=== PATIENT | female | born 1980 | race Caucasian/White ===

== ENCOUNTER 2021-12-16 16:32 | Observation (INO) | payer OTHER, SELFPAY ==
[2021-12-16] VITALS (21 sets, daily range): BP systolic 112–199; BP diastolic 75–116; PULSE 77–96; RESP 14–37; TEMP 36.6–37.1; O2SAT 95–100; BMI 32.5
--- NOTE | 2021-12-16 | DI.CT.S_ITS ---
P the ROCEDURE: CT ANGIO HEAD AND NECK INDICATIONS: cva TECHNIQUE: After the administration of intravenous contrast, 1 mm thick sections acquired from the aortic arch through the [place]. Post-contrast 4.5 mm thick sections then re-acquired from the foramen magnum to the vertex. 3-dimensional ovmifwk-narexirkr-qfirzlgohy (MIP) and/or volume rendering reformats were acquired of the central intracranial vasculature and neck separately. For radiation dose reduction, the following was used: automated exposure control, adjustment of mA and/or kV according to patient size. COMPARISON: Located Within [facility], CT, CT HEAD/BRAIN WO CON, 12/16/2021, 17:21. Located Within [facility], MR, MR STROKE, 12/16/2021, 18:19. FINDINGS: Image quality: Excellent. BRAIN: CSF spaces: Basal cisterns are patent. No extra-axial fluid collections. Ventricles are normal in size and shape. Brain: No intracranial hemorrhage, mass, or mass effect. Roman-white matter interface appears grossly preserved. Small acute left basal ganglia lacunar infarct seen on recent MRI is not well visualized on CT. No abnormal intracranial enhancement. Skull and face: Calvarium and facial bones appear intact, without suspicious lesions. Orbits appear normal. Sinuses: Sinuses and mastoids are clear. HEAD CT ANGIOGRAPHY: Anterior circulation: Intracranial internal carotid arteries are normal in size and appear patent bilaterally. There is mild atherosclerotic calcification along the cavernous segments of the internal carotid arteries. The paired anterior cerebral arteries appear patent bilaterally. The anterior communicating artery also appears patent. The middle cerebral arteries appear patent bilaterally. No high-grade stenosis, occlusion, or filling defects. No cerebral aneurysms identified. Posterior circulation: Visualized portions of the vertebral arteries demonstrate normal caliber, and join to form a patent basilar artery. The posterior cerebral arteries appears patent bilaterally. No high-grade stenosis, occlusion, or filling defects. No cerebral aneurysms identified. NECK CT ANGIOGRAPHY: Carotid system: The great vessels demonstrate a conventional anatomy as they arise from the aortic arch. The origins of the common carotid arteries appear patent. The common carotid arteries demonstrate normal caliber and courses. The carotid bulbs appear widely patent. The internal carotid arteries demonstrate normal calibers and courses. Posterior circulation: The origins of the vertebral arteries both appear patent. The more superior extracranial portions of both vertebral arteries also demonstrate normal courses and calibers. They join to form a patent basilar artery. Soft tissues: Visualized neck soft tissues demonstrate no suspicious abnormalities. Bones: No suspicious bony lesions. Visualized cervical spine appears normally aligned. IMPRESSION: 1. No high-grade stenosis or occlusion of the central intracranial arteries. Focal stenosis in the left MCA seen on recent MRI is not identified, which may reflect artifact on the MRI study. 2. No high-grade stenosis or occlusion in the head and neck arteries. 3. Small lacunar infarct in the left basal ganglia seen on MRI is not well visualized on the current CT study. Any quantitative measurements of stenosis were performed using NASCET criteria. Dictated by: Alfredo Fox M.D. on 12/16/2021 at 23:35 Approved by: Alfredo Fox M.D. on 12/16/2021 at 23:40
--- NOTE | 2021-12-16 17:07 | DI.RAD.S_ITS ---
PROCEDURE: XR CHEST 1V INDICATIONS: Possible stroke TECHNIQUE: One view of the chest was acquired. COMPARISON: None. FINDINGS: Surgical changes and devices: None. Lungs and pleura: Lungs are clear. No pleural effusions or pneumothorax. Mediastinum: Mediastinal contours appear normal. Heart size is normal. Bones and chest wall: No suspicious bony lesions. Overlying soft tissues appear unremarkable. IMPRESSION: No evidence acute pulmonary process. Dictated by: Dru Riley M.D. on 12/16/2021 at 17:29 Approved by: Dru Riley M.D. on 12/16/2021 at 17:30
--- NOTE | 2021-12-16 17:08 | DI.CT.S_ITS ---
PROCEDURE: CT HEAD/BRAIN WO CON INDICATIONS: stroke symptoms TECHNIQUE: Noncontrast 4.5 mm thick angled axial sections acquired from the foramen magnum to the vertex, with coronal and sagittal reformats. For radiation dose reduction, the following was used: automated exposure control, adjustment of mA and/or kV according to patient size. COMPARISON: None. FINDINGS: Image quality: Excellent. CSF spaces: Basal cisterns are patent. No extra-axial fluid collections. Ventricles are normal in size and shape. Brain: No midline shift. No intracranial masses or hemorrhage. Roman-white matter interface is normal. Skull and face: Calvarium and visualized facial bones are intact, without suspicious lesions. Sinuses: Visualized sinuses and mastoids are clear. IMPRESSION: No evidence acute intracranial process Dictated by: Dru Riley M.D. on 12/16/2021 at 18:05 Approved by: Dru Riley M.D. on 12/16/2021 at 18:05
[2021-12-16 17:20] LABS: Add Manual Diff / Slide Review NO; Basophils Absolute Auto 0 /uL (0-100); Basophils Percent Auto 0.4 % (0-2); Eosinophils Absolute Auto 100 /uL (0-450); Eosinophils Percent Auto 1.1 % (2-4); Hematocrit 40.9 % (36-46); Hemoglobin 14.1 g/dL (12.0-16.0); Lymphocytes Absolute Auto 2500 /uL (1100-4500); Lymphocytes Percent Auto 28.2 % (25-40); Mean Corpuscular HGB Conc 34.6 % (30-36); Mean Corpuscular Hemoglobin 28.8 PG (26-34); Mean Corpuscular Volume 83.3 fL (80-100); Monocytes Absolute Auto 500 /uL (0-900); Monocytes Percent Auto 5.2 % (3-14); Neutrophils Absolute Auto 5700 /uL (1500-7000); Neutrophils Percent Auto 65.1 % (50-75); Platelet Count 406 X10^3/uL (150-400); Red Blood Cell Count 4.91 X10^6/uL (4.0-5.2); Red Cell Distribution Width 14.2 % (11.6-14.8); White Blood Cell Count 8.7 X10^3/uL (4.5-11.0)
--- NOTE | 2021-12-16 17:26 | ED.NEUROSD ---
HPI - Neuro Symptoms/Deficit <Faith Levi DO - Last Filed: 12/17/21 08:01> General Chief Complaint: Weakness Stated Complaint: Transient nuerological symptoms this morning Time Seen by Provider: 12/16/21 16:54 Source: patient Mode of arrival: Ambulatory History of Present Illness HPI Narrative: Patient is a healthy 32-year-old female with history of migraines presenting today with right-sided weakness difficulty speaking. Last known well was 9 AM. She said she was on a work call she she could get her words out. Her co-worker confirmed that she was speaking clearly and the correct words however she was speaking very slowly. She noted that her right arm and leg were numb and she did feel quite right. [place] to call [place] in she laid down and went to sleep. Her symptoms lasted for about 1 hour that completely resolved. She slightly received a phone call back later, stating she should go to the emergency department. She says she gets the visit she has had a light headache. She says typically her migraines she gets starts in her eyes she can tell that they are coming is was not migraine. Although she has had a mild headache ongoing. The symptoms have completely resolved and she is here to be checked. She has no immediate family history of stroke or coronary artery disease On Anticoagulants: No Related Data Previous Rx's Medication Instructions Recorded aspirin 81 mg tablet,delayed 81 mg PO DAILY #30 tabs 12/17/21 release atorvastatin 20 mg tablet (Lipitor) 80 mg PO BEDTIME #30 tabs 12/17/21 Allergies Allergy/AdvReac Type Severity Reaction Status Date / Time No Known Drug Allergies Allergy Verified 12/16/21 17:12 Review of Systems <Faith Levi DO - Last Filed: 12/17/21 08:01> Review of Systems Narrative: GENERAL: Denies chills, fatigue, malaise, fever, sweats, travel HEENT: Denies sinus pain, ear pain, sore throat, difficulty swallowing, neck pain RESPIRATORY: Denies dyspnea, cough, wheezing, hemoptysis, sputum. CARDIOVASCULAR: Denies chest pain, palpitations, orthopnea, edema GASTROINTESTINAL: Denies nausea, vomiting, abdominal pain, diarrhea, constipation, melena. : Denies dysuria, frequency, incontinence, hematuria, urinary retention, flank pain. MUSCULOSKELETAL: Denies weakness, joint pain, or bony pain SKIN: No rash, no erythema, no pruritus NEUROLOGIC: See HPI PSYCHIATRIC: No concerning psychosocial issues. 12 point review of systems is negative except for those stated above and HPI Hematologic/Lymphatic On Anticoagulants: No Patient History <Faith Levi DO - Last Filed: 12/17/21 08:01> Social History household members: spouse Smoking Status: Never smoker Smoking Status: Never smoker alcohol intake frequency: other Substance Use Type: does not use Exam <Faith Levi DO - Last Filed: 12/17/21 08:01> Initial Vital Signs Initial Vital Signs: Vital Signs Pulse Rate 93 H 12/16/21 17:00 Respiratory Rate 21 12/16/21 17:00 Pulse Oximetry 100 12/16/21 17:00 GENERAL: Alert pleasant 40-year-old female HEENT: Head atraumatic,EOMI, pupils reactive, face symmetric, moist mucous membranes CARDIOVASCULAR: Regular rate and rhythm without murmurs, rubs or gallops. RESPIRATORY: Breath sounds equal bilaterally, no wheezes rales or rhonchi. ABDOMEN: Soft, nontender. Normoactive bowel sounds all 4 quadrants. No guarding or rebound. EXTREMITIES: Normal range of motion, no clubbing or edema. Neurovascularly intact NEUROLOGICAL: Alert and oriented x4.Normal gait and speech. Cranial nerves II through XII grossly intact. Good [id number], good [id number], strength equal bilaterally, no dysarthria or aphasia, sensation in tact to soft touch bilaterally, no visual changes, no facial droop SKIN: Warm, dry, no laceration, no petechiae, no rashes or lesions. <Criss Xie DO - Last Filed: 12/22/21 14:39> Initial Vital Signs Initial Vital Signs: Vital Signs Pulse Rate 93 H 12/16/21 17:00 Respiratory Rate 21 12/16/21 17:00 Pulse Oximetry 100 12/16/21 17:00 Scores <Faith Levi DO - Last Filed: 12/17/21 08:01> NIH Stroke Scale Level of Conciousness: Alert, keenly responsive Ask month/age: Answers both questions correctly. Open/close eyes, close hand: Performs both tasks correctly Best gaze horizontal: Normal Visual aguilar: No visual loss Facial palsy: Normal symetrical movement Left arm drift: No drift for full 10 sec Right arm drift: No drift for full 10 sec Left leg drift: No drift for full 5 sec Right leg drift: No drift for full 5 sec Limb ataxia: Absent Sensory on face/arms/legs: Normal, no sensory loss Best language: No aphasia, normal Dysarthria: Normal Extinction or inattention: No abnormality Total NIH Stroke scale score: 0 <Criss Xie, DO - Last Filed: 12/22/21 14:39> NIH Stroke Scale Total NIH Stroke scale score: 0 Course <Faith Levi, DO - Last Filed: 12/17/21 08:01> Orders Ordered: Discontinued Medications Acetaminophen (Acetaminophen 325 Mg Tablet) 650 mg PO Q6HR PRN PRN Reason: Fever/Mild Pain (1-3) Last Admin: 12/17/21 04:21 Dose: 650 mg Documented By: YOBANI Aspirin (Aspirin 81 Mg Chew Tab) 324 mg PO NOW ONE Stop: 12/16/21 20:36 Last Admin: 12/16/21 20:51 Dose: 324 mg Documented By: STEFFI Aspirin (Aspirin Ec 81 Mg Tablet) 81 mg PO DAILY [facility] Last Admin: 12/17/21 09:56 Dose: 81 mg Documented By: Atorvastatin Calcium (Atorvastatin 20 Mg Tablet) 80 mg PO BEDTIME [facility] Heparin Sodium (Porcine) (Heparin 5,000 Unit/Ml Vial) 5,000 unit SUBCUT BID [facility] Last Admin: 12/17/21 09:56 Dose: 5,000 unit Documented By: Sodium Chloride (Normal Saline 0.9%) 1,000 mls @ 100 mls/hr IV CONT [facility] Last Admin: 12/17/21 00:15 Dose: 100 mls/hr Documented By: YOBANI Ondansetron HCl (Ondansetron 4 Mg/2 Ml Inj) 4 mg IV Q8HR PRN PRN Reason: Nausea And Vomiting Vital Signs Vital signs: Vital Signs - 8 hr 12/16/21 17:08 12/16/21 17:00 12/16/21 17:30 Temperature 98.7 F Pulse Rate 94 H 93 H Respiratory Rate 18 21 Blood Pressure 167/84 H 176/116 H Pulse Oximetry 100 100 Oxygen Delivery Method Room Air 12/16/21 17:30 12/16/21 17:34 12/16/21 17:34 Temperature Pulse Rate 93 H 92 H Respiratory Rate 14 27 H Blood Pressure 182/111 H Pulse Oximetry 99 98 Oxygen Delivery Method 12/16/21 18:00 12/16/21 18:01 12/16/21 18:01 Temperature Pulse Rate 83 87 Respiratory Rate 18 18 Blood Pressure 159/114 H Pulse Oximetry 96 97 Oxygen Delivery Method 12/16/21 19:00 12/16/21 19:01 12/16/21 19:02 Temperature Pulse Rate 96 H 95 H Respiratory Rate Blood Pressure 112/75 Pulse Oximetry 95 99 Oxygen Delivery Method 12/16/21 19:02 12/16/21 19:30 12/16/21 19:31 Temperature Pulse Rate 88 84 84 Respiratory Rate 24 17 17 Blood Pressure Pulse Oximetry 98 100 100 Oxygen Delivery Method <Criss Xie, - Last Filed: 12/22/21 14:39> Orders Ordered: Discontinued Medications Acetaminophen (Acetaminophen 325 Mg Tablet) 650 mg PO Q6HR PRN PRN Reason: Fever/Mild Pain (1-3) Last Admin: 12/17/21 04:21 Dose: 650 mg Documented By: YOBANI Aspirin (Aspirin 81 Mg Chew Tab) 324 mg PO NOW ONE Stop: 12/16/21 20:36 Last Admin: 12/16/21 20:51 Dose: 324 mg Documented By: STEFFI Aspirin (Aspirin Ec 81 Mg Tablet) 81 mg PO DAILY [facility] Last Admin: 12/17/21 09:56 Dose: 81 mg Documented By: Atorvastatin Calcium (Atorvastatin 20 Mg Tablet) 80 mg PO BEDTIME [facility] Heparin Sodium (Porcine) (Heparin 5,000 Unit/Ml Vial) 5,000 unit SUBCUT BID [facility] Last Admin: 12/17/21 09:56 Dose: 5,000 unit Documented By: Sodium Chloride (Normal Saline 0.9%) 1,000 mls @ 100 mls/hr IV CONT [facility] Last Admin: 12/17/21 00:15 Dose: 100 mls/hr Documented By: YOBANI Ondansetron HCl (Ondansetron 4 Mg/2 Ml Inj) 4 mg IV Q8HR PRN PRN Reason: Nausea And Vomiting Consultations Consultation #1: Telestroke neurology, [facility]. Dr. Escamilla. Going to review images. Called back after reviewing MRI: Recommends aspirin 324 mg daily because patient's over 70 kg hold dual platelet therapy for this time but recontact if CT angiogram of head and neck shows severe stenosis or other concerning changes. They are happy to have be reconsulted. He does recommend follow-up with Neurology recommends a lumbar puncture either as an outpatient or urgently after CT angiogram to evaluate from an MS perspective in for inflammatory changes. He states this does not have to be done inpatient but could occur on an outpatient a depending on timing. He also notes that he will review this with their neuro radiologist and if there is any clarifications or changes will recontact. Consultation #2: Dr. Cash, discussed recommendations from neurology. He will come and see and evaluate the patient. He may also touch base with Neurology as patient has unexpected MRI findings. Vital Signs Vital signs: Vital Signs - 8 hr 12/16/21 17:08 12/16/21 17:00 12/16/21 17:30 Temperature 98.7 F Pulse Rate 94 H 93 H Respiratory Rate 18 21 Blood Pressure 167/84 H 176/116 H Pulse Oximetry 100 100 Oxygen Delivery Method Room Air 12/16/21 17:30 12/16/21 17:34 12/16/21 17:34 Temperature Pulse Rate 93 H 92 H Respiratory Rate 14 27 H Blood Pressure 182/111 H Pulse Oximetry 99 98 Oxygen Delivery Method 12/16/21 18:00 12/16/21 18:01 12/16/21 18:01 Temperature Pulse Rate 83 87 Respiratory Rate 18 18 Blood Pressure 159/114 H Pulse Oximetry 96 97 Oxygen Delivery Method 12/16/21 19:00 12/16/21 19:01 12/16/21 19:02 Temperature Pulse Rate 96 H 95 H Respiratory Rate Blood Pressure 112/75 Pulse Oximetry 95 99 Oxygen Delivery Method 12/16/21 19:02 12/16/21 19:30 12/16/21 19:31 Temperature Pulse Rate 88 84 84 Respiratory Rate 24 17 17 Blood Pressure Pulse Oximetry 98 100 100 Oxygen Delivery Method MDM - Neuro Symptoms/Deficit <Faith Levi, - Last Filed: 12/17/21 08:01> Lab Data Result diagrams: 12/16/21 17:12 12/16/21 17:12 Labs: Lab Results 12/16/21 12/16/21 12/16/21 Range/Units 17:12 17:12 17:12 WBC 8.7 (4.5-11.0) X10^3/uL RBC 4.91 (4.0-5.2) X10^6/uL Hgb 14.1 (12.0-16.0) g/dL Hct 40.9 (36-46) % MCV 83.3 (80-100) fL MCH 28.8 (26-34) PG MCHC 34.6 (30-36) % RDW 14.2 (11.6-14.8) % Plt Count 406 H (150-400) X10^3/uL Neut % (Auto) 65.1 (50-75) % Lymph % (Auto) 28.2 (25-40) % [place] % (Auto) 5.2 (3-14) % Eos % (Auto) 1.1 L (2-4) % Baso % (Auto) 0.4 (0-2) % Neut # (Auto) 5700 (3776-9169) /uL Lymph # (Auto) 2500 (9547-3995) /uL [place] # (Auto) 500 (0-900) /uL Eos # (Auto) 100 (0-450) /uL Baso # (Auto) 0 (0-100) /uL PT 11.6 (10.1-12.7) SECONDS INR 1.0 (0.9-1.3) APTT 37 H (26-36) SECONDS Sodium 140 (137-145) mmol/L Potassium 3.6 (3.4-5.1) mmol/L Chloride 104 (98-107) mmol/L Carbon Dioxide 23 (22-32) mmol/L BUN 14 (7-17) mg/dL Creatinine 0.76 (0.52-1.04) mg/dL Estimated GFR > 60 (>60) mL/min BUN/Creatinine Ratio 18.4 (6-22) Glucose 121 H (70-100) mg/dL Calcium 9.5 (8.4-10.2) mg/dL Magnesium 2.2 (1.6-2.3) mg/dL Total Bilirubin 0.4 (0.2-1.3) mg/dL AST 23 (14-36) IU/L ALT 31 (<35) IU/L Alkaline Phosphatase 61 (38-126) U/L Total Creatine Kinase 50 (30-135) U/L CK-MB (CK-2) TNP CK-MB (CK-2) Rel Index TNP Troponin I < 0.012 (0.01-0.034) ng/mL Total Protein 8.1 (6.3-8.2) g/dL Albumin 4.5 (3.5-5.0) g/dL Globulin 3.6 (1.7-4.1) g/dL Albumin/Globulin Ratio 1.3 (1.0-2.8) Serum , Qual (Negative) SARS-CoV-2 (PCR) (Negative) 12/16/21 12/16/21 Range/Units 17:12 21:40 WBC (4.5-11.0) X10^3/uL RBC (4.0-5.2) X10^6/uL Hgb (12.0-16.0) g/dL Hct (36-46) % MCV (80-100) fL MCH (26-34) PG MCHC (30-36) % RDW (11.6-14.8) % Plt Count (150-400) X10^3/uL Neut % (Auto) (50-75) % Lymph % (Auto) (25-40) % [place] % (Auto) (3-14) % Eos % (Auto) (2-4) % Baso % (Auto) (0-2) % Neut # (Auto) (9458-4783) /uL Lymph # (Auto) (9161-5660) /uL [place] # (Auto) (0-900) /uL Eos # (Auto) (0-450) /uL Baso # (Auto) (0-100) /uL PT (10.1-12.7) SECONDS INR (0.9-1.3) APTT (26-36) SECONDS Sodium (137-145) mmol/L Potassium (3.4-5.1) mmol/L Chloride (98-107) mmol/L Carbon Dioxide (22-32) mmol/L BUN (7-17) mg/dL Creatinine (0.52-1.04) mg/dL Estimated GFR (>60) mL/min BUN/Creatinine Ratio (6-22) Glucose (70-100) mg/dL Calcium (8.4-10.2) mg/dL Magnesium (1.6-2.3) mg/dL Total Bilirubin (0.2-1.3) mg/dL AST (14-36) IU/L ALT (<35) IU/L Alkaline Phosphatase (38-126) U/L Total Creatine Kinase (30-135) U/L CK-MB (CK-2) CK-MB (CK-2) Rel Index Troponin I (0.01-0.034) ng/mL Total Protein (6.3-8.2) g/dL Albumin (3.5-5.0) g/dL Globulin (1.7-4.1) g/dL Albumin/Globulin Ratio (1.0-2.8) Serum , Qual Negative (Negative) SARS-CoV-2 (PCR) Negative (Negative) Imaging Data CT scan - head: Radiologist's Impression: [address] [place] [id number] Scan Report Signed Patient: Jenelle Valladares MR#: [id number] : 1980 Acct:[id number] Age/Sex: 40 / F Date of Service: 12/16/21 Loc: ED Accession Number: [id number] ?? Procedure: CT head/brain wo con Ordering Provider: Faith Levi D.O. PROCEDURE:? CT HEAD/BRAIN WO CON ? INDICATIONS:? stroke symptoms ? TECHNIQUE:? Noncontrast 4.5 mm thick angled axial sections acquired from the foramen magnum to the vertex, with coronal and sagittal reformats.? For radiation dose reduction, the following was used:? automated exposure control, adjustment of mA and/or kV according to patient size.? ? COMPARISON:? None. ? FINDINGS:? Image quality:? Excellent.? ? CSF spaces:? Basal cisterns are patent.? No extra-axial fluid collections.? Ventricles are normal in size and shape.? ? Brain:? No midline shift.? No intracranial masses or hemorrhage.? Roman-white matter interface is normal.? ? Skull and face:? Calvarium and visualized facial bones are intact, without suspicious lesions.? ? Sinuses:? Visualized sinuses and mastoids are clear.? ? IMPRESSION:? No evidence acute intracranial process ? ? Dictated by: Dru Riley M.D. on 12/16/2021 at 18:05 ? ? Chest x-ray: Radiologist's Impression: XRay Report Signed Patient: Jenelle Valladares MR#: [id number] : 1980 Acct:[id number] Age/Sex: 40 / F Date of Service: 12/16/21 Loc: ED Accession Number: [id number] ?? Procedure: XR chest 1V Ordering Provider: Faith Levi D.O. PROCEDURE:? XR CHEST 1V ? INDICATIONS:? Possible stroke ? TECHNIQUE:? One view of the chest was acquired.? ? COMPARISON:? None. ? FINDINGS:? ? Surgical changes and devices:? None.? ? Lungs and pleura:? Lungs are clear.? No pleural effusions or pneumothorax.? ? Mediastinum:? Mediastinal contours appear normal.? Heart size is normal.? ? Bones and chest wall:? No suspicious bony lesions.? Overlying soft tissues appear unremarkable.? ? IMPRESSION:? No evidence acute pulmonary process. ? ? ? Dictated by: Dru Riley M.D. on 12/16/2021 at 17:29 ? ? ECG Data Interpretation: Normal sinus rhythm rate 85 MI interval 164 QRS [address] MDM Narrative Medical decision making narrative: Patient's symptoms started at 9:00 a.m. lasted for about 1 hour they have been completely resolved for a while. She really has no risk factors. Possible atypical migraine vs TIA. NIHSS 0. Not a tpa candidate. Head CT is negative blood work is overall reassuring. MRI is taken. Patient is signed out to Dr. Xie for further management 40-year-old female signed out to myself with stroke-like symptoms that onset about 845-9 a.m. lasted for approximately an hour longer and have resolved with an NIH of 0 now. Patient seen independently evaluated by myself she still has some mild headache. No residual symptoms. She denies any medications daily, no oral contraceptives, no medical issues. She is had a remote knee surgery in high school, no allergies, no tobacco, occasional alcohol no illicit or IV drugs. Grandmother had a stroke, mom has multiple siblings with cardiac issues at young ages she is 1 brother who is healthy. She has not had similar symptoms in the past has not had any atrial fibrillation here in the department. Labs overall are reassuring head CT was negative chest x-ray showed no acute change stroke MRI shows an acute or subacute lacunar infarct involving the left basal ganglia extending into the periventricular deep white matter there are some scattered deep white T2 signal at abnormalities likely represent scattered, greater than expected foci of small-vessel ischemic change can not exclude a superimposed demyelinating disorder such as MS. She has focal M1 stenosis of the left MCA and otherwise unremarkable neck angiogram. Discussed with tele stroke <Criss Xie, DO - Last Filed: 12/22/21 14:39> Lab Data Labs: Lab Results 12/16/21 12/16/21 12/16/21 Range/Units 17:12 17:12 17:12 WBC 8.7 (4.5-11.0) X10^3/uL RBC 4.91 (4.0-5.2) X10^6/uL Hgb 14.1 (12.0-16.0) g/dL Hct 40.9 (36-46) % MCV 83.3 (80-100) fL MCH 28.8 (26-34) PG MCHC 34.6 (30-36) % RDW 14.2 (11.6-14.8) % Plt Count 406 H (150-400) X10^3/uL Neut % (Auto) 65.1 (50-75) % Lymph % (Auto) 28.2 (25-40) % [place] % (Auto) 5.2 (3-14) % Eos % (Auto) 1.1 L (2-4) % Baso % (Auto) 0.4 (0-2) % Neut # (Auto) 5700 (3675-1830) /uL Lymph # (Auto) 2500 (1033-8669) /uL [place] # (Auto) 500 (0-900) /uL Eos # (Auto) 100 (0-450) /uL Baso # (Auto) 0 (0-100) /uL PT 11.6 (10.1-12.7) SECONDS INR 1.0 (0.9-1.3) APTT 37 H (26-36) SECONDS Sodium 140 (137-145) mmol/L Potassium 3.6 (3.4-5.1) mmol/L Chloride 104 (98-107) mmol/L Carbon Dioxide 23 (22-32) mmol/L BUN 14 (7-17) mg/dL Creatinine 0.76 (0.52-1.04) mg/dL Estimated GFR > 60 (>60) mL/min BUN/Creatinine Ratio 18.4 (6-22) Glucose 121 H (70-100) mg/dL Calcium 9.5 (8.4-10.2) mg/dL Magnesium 2.2 (1.6-2.3) mg/dL Total Bilirubin 0.4 (0.2-1.3) mg/dL AST 23 (14-36) IU/L ALT 31 (<35) IU/L Alkaline Phosphatase 61 (38-126) U/L Total Creatine Kinase 50 (30-135) U/L CK-MB (CK-2) TNP CK-MB (CK-2) Rel Index TNP Troponin I < 0.012 (0.01-0.034) ng/mL Total Protein 8.1 (6.3-8.2) g/dL Albumin 4.5 (3.5-5.0) g/dL Globulin 3.6 (1.7-4.1) g/dL Albumin/Globulin Ratio 1.3 (1.0-2.8) Serum , Qual (Negative) SARS-CoV-2 (PCR) (Negative) 12/16/21 12/16/21 Range/Units 17:12 21:40 WBC (4.5-11.0) X10^3/uL RBC (4.0-5.2) X10^6/uL Hgb (12.0-16.0) g/dL Hct (36-46) % MCV (80-100) fL MCH (26-34) PG MCHC (30-36) % RDW (11.6-14.8) % Plt Count (150-400) X10^3/uL Neut % (Auto) (50-75) % Lymph % (Auto) (25-40) % [place] % (Auto) (3-14) % Eos % (Auto) (2-4) % Baso % (Auto) (0-2) % Neut # (Auto) (3724-9469) /uL Lymph # (Auto) (2286-1233) /uL [place] # (Auto) (0-900) /uL Eos # (Auto) (0-450) /uL Baso # (Auto) (0-100) /uL PT (10.1-12.7) SECONDS INR (0.9-1.3) APTT (26-36) SECONDS Sodium (137-145) mmol/L Potassium (3.4-5.1) mmol/L Chloride (98-107) mmol/L Carbon Dioxide (22-32) mmol/L BUN (7-17) mg/dL Creatinine (0.52-1.04) mg/dL Estimated GFR (>60) mL/min BUN/Creatinine Ratio (6-22) Glucose (70-100) mg/dL Calcium (8.4-10.2) mg/dL Magnesium (1.6-2.3) mg/dL Total Bilirubin (0.2-1.3) mg/dL AST (14-36) IU/L ALT (<35) IU/L Alkaline Phosphatase (38-126) U/L Total Creatine Kinase (30-135) U/L CK-MB (CK-2) CK-MB (CK-2) Rel Index Troponin I (0.01-0.034) ng/mL Total Protein (6.3-8.2) g/dL Albumin (3.5-5.0) g/dL Globulin (1.7-4.1) g/dL Albumin/Globulin Ratio (1.0-2.8) Serum , Qual Negative (Negative) SARS-CoV-2 (PCR) Negative (Negative) MDM Narrative Medical decision making narrative: Patient's symptoms started at 9:00 a.m. lasted for about 1 hour they have been completely resolved for a while. She really has no risk factors. Possible atypical migraine vs TIA. NIHSS 0. Not a tpa candidate. Head CT is negative blood work is overall reassuring. MRI is taken. Patient is signed out to Dr. Xie for further management 40-year-old female signed out to myself with stroke-like symptoms that onset about 845-9 a.m. lasted for approximately an hour longer and have resolved with an NIH of 0 now. Patient seen independently evaluated by myself she still has some mild headache. No residual symptoms. She denies any medications daily, no oral contraceptives, no medical issues. She is had a remote knee surgery in high school, no allergies, no tobacco, occasional alcohol no illicit or IV drugs. Grandmother had a stroke, mom has multiple siblings with cardiac issues at young ages she is 1 brother who is healthy. She has not had similar symptoms in the past has not had any atrial fibrillation here in the department. Labs overall are reassuring head CT was negative chest x-ray showed no acute change stroke MRI shows an acute or subacute lacunar infarct involving the left basal ganglia extending into the periventricular deep white matter there are some scattered deep white T2 signal at abnormalities likely represent scattered, greater than expected foci of small-vessel ischemic change can not exclude a superimposed demyelinating disorder such as MS. She has focal M1 stenosis of the left MCA and otherwise unremarkable neck angiogram. Discussed with tele stroke, recommended full dose asa, no dual antiplatelet at this time. Stroke workup. Not code IR at this time. Also recommends further workup for MS, ect. LP can be done on non-emergent basis and requests CTA head/neck prior to LP. Reviewed with Dr. Cash, hospitalist who accepts for admission. Stroke Core Measures Exclusion Criteria TPA in CVA: Symptom Onset >3 or 4.5 Hours Discharge Plan Departure Patient Disposition: Admitted As Inpatient Clinical Impression: Acute CVA (cerebrovascular accident) Admit Date/Time: 12/16/21 22:03 Admit Provider: Graham Cash
[2021-12-16 17:29] LABS: Prothrombin Time 11.6 SECONDS (10.1-12.7)
[2021-12-16 17:31] LABS: PTT Partial Thromboplastin Tim 37 SECONDS (26-36)
--- NOTE | 2021-12-16 17:36 | DI.MRI.S_ITS ---
PROCEDURE: MR STROKE Pre- and post-contrast brain MRI, non-contrast brain MR angiogram, pre- and postcontrast neck MR angiogram INDICATIONS: right seided numbness now resolved TECHNIQUE: Brain: Noncontrast axial T1 spin echo, axial T2 fast spin echo, sagittal and axial FLAIR, coronal T2 fast spin echo, axial gradient echo, axial diffusion and ADC through the brain. After the administration of contrast, axial 3D VIBE of the cranial vasculature and brain. Brain MRA: Non-contrast 3-D time of flight MR angiogram, with multiple brcjifo-dnjbvodjf-decfywkatv (MIP) reformats performed. Neck MRA: Axial and sagittal TruFISP through the neck. Coronal dynamic MR angiogram during administration of contrast in the arterial and venous phases, with 3-dimenstional dwkxiqd-erwhopyge-qdwudcinvu (MIP) reformats constructed from subtraction images. COMPARISON: None. FINDINGS: Image quality: Excellent. BRAIN: CSF spaces: Ventricles are normal in size and shape. Basal cisterns are patent. No extra-axial fluid collections. Brain: No intracranial bleeds or mass effects. Roman-white matter interface is normal. There is a tiny acute or subacute lacunar infarct involving the right basal ganglia extending into the right periventricular deep white matter. There is restricted water diffusion present on the diffusion-weighted sequence. There also scattered small areas of increased T2 signal present in multiple deep white matter structures, consistent with mild, but greater than expected for patient age small vessel ischemic change. There are small areas of signal abnormality present in the corpus callosum, which most likely represent sequelae of small vessel ischemic change. However, cannot exclude a demyelinating disorder. Brainstem appears normal. Normal intravascular flow voids are present. No abnormal intracranial enhancement. Skull and face: Calvarial marrow signal is normal. Orbits appear normal. Sinuses: Sinuses and mastoids are clear. BRAIN MR ANGIOGRAM: Anterior circulation: Intracranial internal carotid arteries are normal in size and enhancement. The flow within the paired anterior cerebral arteries is normal and symmetric mild left M1 segment middle cerebral artery stenosis. The anterior communicating artery is seen. No stenoses, occlusions, or aneurysms. Posterior circulation: The visualized portions of the vertebral arteries demonstrate normal caliber, and join to form a normal appearing basilar artery. The flow within the posterior cerebral arteries is normal and symmetric. No stenoses, occlusions, or aneurysms. NECK MR ANGIOGRAM: Carotids: Great vessels demonstrate a conventional anatomy as they arise from the aortic arch. The origins of the common carotid arteries appear patent. The calibers and courses of both common carotid arteries are normal. The bifurcation regions appear normal bilaterally. The internal carotid arteries demonstrate normal course and caliber. Posterior circulation: The origins of the vertebral arteries appear patent. More superior portions of both vertebral arteries demonstrate normal course and caliber, and join to form a normal appearing basilar artery. Miscellaneous: Subclavian arteries appear patent. Pre-contrast images through the neck show no soft tissue abnormalities. IMPRESSION: BRAIN MRI: 1. Acute or subacute lacunar infarct involving the left basal ganglia extending into periventricular deep white matter. 2. Scattered deep white matter T2 signal abnormalities most likely represent scattered, greater than expected foci of small vessel ischemic change. However, T2 signal abnormalities also involve the corpus callosum. Cannot exclude a superimposed demyelinating disorder such as multiple sclerosis. BRAIN MR ANGIOGRAM: There is a focal M1 stenosis of the left middle cerebral artery. NECK MR ANGIOGRAM: Unremarkable. Widely patent carotids. Dictated by: Dru Riley M.D. on 12/16/2021 at 19:38 Approved by: Dru Riley M.D. on 12/16/2021 at 19:46
[2021-12-16 17:39] LABS: Alanine Aminotransferase 31 IU/L (<35); Albumin 4.5 g/dL (3.5-5.0); Albumin Globulin Ratio 1.3 (1.0-2.8); Alkaline Phosphatase 61 U/L (38-126); Aspartate Aminotransferase 23 IU/L (14-36); BUN Creatinine Ratio 18.4 (6-22); Bilirubin Total 0.4 mg/dL (0.2-1.3); Blood Urea Nitrogen 14 mg/dL (7-17); Calcium 9.5 mg/dL (8.4-10.2); Carbon Dioxide 23 mmol/L (22-32); Chloride 104 mmol/L (98-107); Creatine Kinase 50 U/L (30-135); Estimated Glomerular Filt Rate > 60 mL/min (>60); Globulin 3.6 g/dL (1.7-4.1); Glucose 121 mg/dL (70-100); Magnesium 2.2 mg/dL (1.6-2.3); Potassium 3.6 mmol/L (3.4-5.1); Sodium 140 mmol/L (137-145); Total Protein 8.1 g/dL (6.3-8.2)
[2021-12-16 17:51] LABS: HEMOLYSIS < 15 (0-50); Troponin I < 0.012 ng/mL (0.01-0.034)
[2021-12-16] MEDS: ASPIRIN 81 MG CHEW TAB 324 MG PO (20:51)
[2021-12-16 21:45] LABS: Pregnancy Test Serum,Qual Negative (Negative)
[2021-12-16 22:19] LABS: COVID19 -Nasal RAPID Negative (Negative)
--- NOTE | 2021-12-16 22:46 | P.HP_ITS ---
History of Present Illness History of Present Illness Date Patient Seen: 12/16/21 Time Patient Seen: 22:30 Chief complaint: Transient nuerological symptoms this morning Narrative: Ms. Valladares is a 32W with history of migraines who presents with right sided weakness and difficulty speaking. She said she felt fine yesterday. Today she thinks she woke up feeling off, and then over the course of the morning noted she was unable to speak words correctly. She noted difficulty controlling her right sided and inability to walk straight. She had right sided numbness. She had a headache. Her symptoms resolved after an hour. She called a nursing hotline which recommended presenting to the ED. She has no history of miscarriages. In the ED workup was done, vitals notable for tachycardia, and elevated blood pressure. No fever. Labs notable for WBC 8.7, hgb 14.1. Creatinine 0.76. INR 1.0. Trop negative. CT head negative for acute process. Chest xray negative for acute process. MRI showed acute left basal ganglia infract, scattered T2 signal abnormalities in the deep white matter and focal M1 stenosis of the MCA. She was ordered for aspirin. Teleneurology was consulted and so no indication for code IR and to admit and treat medically. She was admitted for further treatment. Family history: mother with MS Social history: no smoking, other substance abuse Patient History Family & Social History Safety & Behavioral: Feels Safe in Current Yes Environment Been Physically Hurt or No Threatened By a Person Tobacco & Substance use: Smoking Status Never smoker alcohol intake frequency other Substance Use Type does not use Meds Home Medications and Allergies Home Medications Medication Instructions Recorded Confirmed Type No Known Home Medications 12/16/21 12/16/21 History Allergies Allergy/AdvReac Type Severity Reaction Status Date / Time No Known Drug Allergies Allergy Verified 12/16/21 17:12 Review of Systems Review of Systems Narrative: 14 systems reviewed and negative aside from what is noted in HPI Exam Vital Signs (past 8 hours): - 12/16/21 17:08 12/16/21 17:00 12/16/21 17:30 Temperature 98.7 F Pulse Rate 94 H 93 H Respiratory Rate 18 21 Blood Pressure 167/84 H 176/116 H Pulse Oximetry 100 100 Oxygen Delivery Method Room Air 12/16/21 17:30 12/16/21 17:34 12/16/21 17:34 Temperature Pulse Rate 93 H 92 H Respiratory Rate 14 27 H Blood Pressure 182/111 H Pulse Oximetry 99 98 Oxygen Delivery Method 12/16/21 18:00 12/16/21 18:01 12/16/21 18:01 Temperature Pulse Rate 83 87 Respiratory Rate 18 18 Blood Pressure 159/114 H Pulse Oximetry 96 97 Oxygen Delivery Method 12/16/21 19:00 12/16/21 19:01 12/16/21 19:02 Temperature Pulse Rate 96 H 95 H Respiratory Rate Blood Pressure 112/75 Pulse Oximetry 95 99 Oxygen Delivery Method 12/16/21 19:02 12/16/21 19:30 12/16/21 19:31 Temperature Pulse Rate 88 84 84 Respiratory Rate 24 17 17 Blood Pressure Pulse Oximetry 98 100 100 Oxygen Delivery Method 12/16/21 19:55 12/16/21 19:55 12/16/21 20:00 Temperature Pulse Rate 85 Respiratory Rate 20 Blood Pressure 188/102 H 185/104 H Pulse Oximetry 99 Oxygen Delivery Method 12/16/21 20:00 12/16/21 20:30 12/16/21 20:30 Temperature Pulse Rate 84 79 Respiratory Rate 17 14 Blood Pressure 172/90 H Pulse Oximetry 99 99 Oxygen Delivery Method 12/16/21 21:00 12/16/21 21:00 12/16/21 21:30 Temperature Pulse Rate 85 Respiratory Rate 33 H Blood Pressure 186/110 H 199/92 H Pulse Oximetry 99 Oxygen Delivery Method 12/16/21 21:30 12/16/21 22:00 12/16/21 22:01 Temperature Pulse Rate 85 83 83 Respiratory Rate 24 34 H Blood Pressure Pulse Oximetry 100 98 98 Oxygen Delivery Method 12/16/21 22:01 Temperature Pulse Rate Respiratory Rate Blood Pressure 190/100 H Pulse Oximetry Oxygen Delivery Method Oxygen Delivery Method Room Air Narrative Exam Narrative: GEN: no acute distress HEENT: moist mucous membranes, PERRL Neck: trachea midline, no jvd CV: regular rate and rhythm, no murmurs PULM: clear bilaterally ABD: soft, nontender, nondistended, no organomegaly EXT: warm and well perfused with no edema NEURO: awake, alert oriented, CN 2-12 intact, sensation intact, 5/5 strength upper and lower extremities no cerebellar signs Objective Labs Result Diagrams: 12/16/21 17:12 12/16/21 17:12 Labs: Laboratory Results - last 24 hr 09/15/22 09/15/22 09/15/22 17:12 17:12 17:12 WBC 8.7 RBC 4.91 Hgb 14.1 Hct 40.9 MCV 83.3 MCH 28.8 MCHC 34.6 RDW 14.2 Plt Count 406 H Neut % (Auto) 65.1 Lymph % (Auto) 28.2 [place] % (Auto) 5.2 Eos % (Auto) 1.1 L Baso % (Auto) 0.4 Neut # (Auto) 5700 Lymph # (Auto) 2500 [place] # (Auto) 500 Eos # (Auto) 100 Baso # (Auto) 0 PT 11.6 INR 1.0 APTT 37 H Sodium 140 Potassium 3.6 Chloride 104 Carbon Dioxide 23 BUN 14 Creatinine 0.76 Estimated GFR > 60 BUN/Creatinine Ratio 18.4 Glucose 121 H Calcium 9.5 Magnesium 2.2 Total Bilirubin 0.4 AST 23 ALT 31 Alkaline Phosphatase 61 Total Creatine Kinase 50 CK-MB (CK-2) TNP CK-MB (CK-2) Rel Index TNP Troponin I < 0.012 Total Protein 8.1 Albumin 4.5 Globulin 3.6 Albumin/Globulin Ratio 1.3 Serum , Qual SARS-CoV-2 (PCR) 12/16/21 12/16/21 17:12 21:40 WBC RBC Hgb Hct MCV MCH MCHC RDW Plt Count Neut % (Auto) Lymph % (Auto) [place] % (Auto) Eos % (Auto) Baso % (Auto) Neut # (Auto) Lymph # (Auto) [place] # (Auto) Eos # (Auto) Baso # (Auto) PT INR APTT Sodium Potassium Chloride Carbon Dioxide BUN Creatinine Estimated GFR BUN/Creatinine Ratio Glucose Calcium Magnesium Total Bilirubin AST ALT Alkaline Phosphatase Total Creatine Kinase CK-MB (CK-2) CK-MB (CK-2) Rel Index Troponin I Total Protein Albumin Globulin Albumin/Globulin Ratio Serum , Qual Negative SARS-CoV-2 (PCR) Negative Assessment & Plan Assessment & Plan narrative: Ms. Valladares is a 40W with no significant PMH who presents dysarthria, right sided neurologic symptoms found to have acute stroke. 1. Acute CVA -MRI confirms left basal ganglia stroke, possible etiology is mca m1 stenosis -noncon brain mra concerning for m1 stenosis -ordered CTA to confirm stenosis -did get aspirin in ED -continue aspirin and statin -check lipids, a1c -blood pressure elevated on admission, allow permissive hypertension -may need outpatient BP medications 2. Scattered T2 white matter abnormality -unclear etiology, may be secondary to small vessel ischemic change or MS -on discharge refer to neurology for follow and possible non urgent LP 3. History of migraines -avoid ergot, triptans CODE: Full Proxy: Ligia Valladares I have utilized all available resources to reconcile the patient's home medications Time Spent With Patient Critical Care time: I spent a total of [] minutes of critical care time on this patient's care today; this time is exclusive of procedural time.
--- NOTE | 2021-12-16 23:43 | DI.ECHO.S_ITS ---
[facility]---------+ [facility] +---------+ : : [address] [place] : : : : [id number] : : : : Phone: [phone]+ Echocardiogram Report + + :Name: SYLVIA MACDONALD Study Date: 12/17/2021 Height: 69 in : :[facility] ReadingLocation: Weight: 225 lb : : Gender: Female BSA: 2.2 m2 : :: 1980 Age: 41 yrs BP: 153/112 mmHg: :Reason For Study: CVA : :Ordering Physician: : :DAI FAULKNER Performed By: Josiah Gil : :Referring: DAI FAULKNER : + + Interpretation Summary The left ventricle is normal in size. There is no LV thrombus. The ejection fraction is estimated to be 60-65%. The right ventricle is normal in size and function. No significant valvular pathology seen. Injection of contrast documented an interatrial shunt with valsalva. Likely patent PFO. Consider SHARIF for further evaluation of interatrial septum. The IVC is of normal diameter and collapses greater than 50% with a sniff. This suggests a low right atrial pressure of 3 mm Hg. The patient was in normal sinus rhythm during the exam. BP: 153/112 mmHg Procedure: A two-dimensional transthoracic echocardiogram with color flow and Doppler was performed. The study quality was technically adequate. There is no prior echocardiogram noted for this patient. The patient was in normal sinus rhythm during the exam. Left Ventricle: The left ventricle is normal in size. Proximal septal thickening is noted. There is no echo evidence for significant left ventricular outflow tract obstruction. There is no thrombus. Left ventricular systolic function is normal. The ejection fraction is estimated to be 60-65%. There are no focal wall motion abnormalities. MV E/A: 1.1 Med Peak E' Jayden: 6.9 cm/sec E/E' med: 10.2. Right Ventricle: The right ventricle is normal in size and function. Atria: Both atria are normal in size. Injection of contrast documented an interatrial shunt with valsalva. Mitral Valve: The mitral valve is normal in structure and function. There is no mitral regurgitation noted. Aortic Valve: The aortic valve is normal in structure and function. The aortic valve is trileaflet. There is no aortic valve stenosis. No aortic regurgitation is present. Tricuspid Valve: The tricuspid valve is normal in structure and function. No tricuspid regurgitation. Pulmonary artery pressures cannot be estimated because of the lack of a measurable TR jet velocity. Pulmonic Valve: The pulmonic valve is not well seen, but is grossly normal. There is no pulmonic valvular regurgitation. Great Vessels: The aortic root is normal size. The dimensions of the ascending aorta are normal. The IVC is of normal diameter and collapses greater than 50% with a sniff. This suggests a low right atrial pressure of 3 mm Hg. Pericardium/ Pleura There is no pericardial effusion. There is an anterior echo-free space consistent with a fat pad. There is no pleural effusion. MMode/2D Measurements & Calculations LVIDd: 4.9 cm LVOT diam: 2.4 cm LVIDs: 3.0 cm Ao root diam: 3.4 cm FS: 39.0 % asc Aorta Diam: 3.6 cm IVSd: 0.96 cm LVPWd: 1.00 cm LV dutton. diameter/BSA (cm/m^2): 2.2 LV sys. diameter/BSA (cm/m^2): 1.4 LA A2 area: 17.9 cm2 RA long axis: 5.2 cm LA A4 area: 13.6 cm2 RA area: 14.0 cm2 LA length (vol): 4.6 cm RA vol: 32.1 ml LA vol: 45.4 ml RA : 14.8 ml/m2 LA vol index: 20.9 ml/m2 TAPSE: 2.5 cm Doppler Measurements & Calculations Ao V2 max: 94.4 cm/sec LVOT Max Jayden: 92.7 cm/sec Ao V2 mean: 72.9 cm/sec LV V1 max P.4 mmHg Ao max P.6 mmHg LV V1 VTI: 17.8 cm Ao mean P.3 mmHg MAKENZIE(I,D): 4.4 cm2 Ao V2 VTI: 18.9 cm MAKENZIE(V,D): 4.6 cm2 sev ratio: 0.94 MAKENZIE indexed to BSA (cm^2/m^2): 2.0 MV E max jayden: 70.2 cm/sec SV(LVOT): 83.6 ml MV A max jayden: 65.9 cm/sec MV E/A: 1.1 Med Peak E' Jayden: 6.9 cm/sec E/E' med: 10.2 Lat Peak E' Jayden: 7.4 cm/sec E/E' lat: 9.4 E/e' average: 9.8 MV dec time: 0.23 sec Reading Physician:10:32 AM
--- NOTE | 2021-12-16 23:45 | PC.NURSE ---
Patient admitted to 218 from ED for stroke symptoms. Patient A&Ox4 on admission, BP 160's/110's, and c/o minimal headache. NIH on admission is 0. Patient able to pass swallow study and is now on general diet.
[2021-12-17] MEDS: SODIUM CHLORIDE 0.9% 1,000 ML 100 ML IV (00:15)
[2021-12-17 03:43] VITALS: BP 153/112; PULSE 82; RESP 14; TEMP 36.9; O2SAT 99
[2021-12-17] MEDS: ACETAMINOPHEN 325 MG TABLET 650 MG PO (04:21)
[2021-12-17 05:15] LABS: Cholesterol 254 mg/dL (140-199); HDL Cholesterol 35 mg/dL (40-60); LDL Cholesterol Calculated 197 mg/dL (<100); Triglycerides 111 mg/dL (35-150)
[2021-12-17 05:31] LABS: Hemoglobin A1C% w Est Avg Glu 5.1 % (4.0-6.0)
[2021-12-17 07:52] VITALS: BP 184/111; PULSE 85; RESP 16; TEMP 36.6; O2SAT 97
--- NOTE | 2021-12-17 09:27 | PC.NURSE ---
Day shift Graham Torres notified of Pt concerns of high blood pressure. Dr instructed to have Pt f/u with Primary care provider for treatment of HTN. also stated it was too soon to start any HTN meds after cardiac incident.
--- NOTE | 2021-12-17 09:40 | OT.IPNOTE ---
Attempted to see pt for OT eval. Pt states feeling back to normal and refusing OT eval. Therefore discharge pt from OT services.
[2021-12-17] MEDS: ASPIRIN EC 81 MG TABLET PO (09:56)
[2021-12-17] MEDS: HEPARIN 5,000 UNIT/ML VIAL 5000 UNIT SUBCUT (09:56)
--- NOTE | 2021-12-17 11:04 | CM.DANOTE ---
Initial DCP Assessment Note Pt is a 41 yo female, resident of [place], presents with sx of stroke and CVA confirmed via MRI Patient's symptoms lasted for about 1 hour than completely resolved; patient refused therapies this morning stating she doesn't need them. Patient eager to return home w/family PCP: Not listed Payer: Randolph Toure No barriers identified at this time to patient's safe discharge home w/family to assist; close outpatient f/u recommended. 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 No History Provided By Patient,Medical Record Prior Living Arrangements House Household Members spouse Type of transporation used prior to Drives own vehicle admit Independent with ADL's Yes Is patient alert and oriented? Yes Barriers to Discharge No Discharge Plan Home Transportation Arrangement Spouse Referrals Initiated None needed
--- NOTE | 2021-12-17 11:05 | ST.IPSCREEN ---
The pt was seated upright in bed looking at her phone with the lights in the room off when SECRETARIAL TEACHER arrived. She reported all symptoms had resolved except her headache. Pt agreed to have lights on for assessment and agreed to participate in assessment activities. Completed oral motor exam. Structures were symmetrical at rest and in motion. Tongue, lip, and jaw strength and ROM were WNL. Mild tongue fasciculations were observed when tongue was at rest. No fasciculations observed while tongue was in motion. Hyolaryngeal elevation and excursion WNL for dry swallow and thin liquids through straw cup. Delayed swallow initiation for dry swallow, which pt indicated was a result of her dry mouth. No overt signs or symptoms of aspiration observed. Structure and function of oral mechanism appears WFL for the purposes of speech and swallowing. Pt presents with several indicators of MS, including the results of MRI, tongue fasciculations, and family history of MS. Speech therapy is not indicated at this time.
--- NOTE | 2021-12-17 12:38 | PT-IP ANOTE ---
PT eval order received and checked on pt. pt with nurse and stated that he is going through pt's d/c papers. pt stated that she feeling back to normal and does not need PT. Pt refused PT eval.
--- NOTE | 2021-12-17 15:01 | P.DS_ITS ---
History of Present Illness History of Present Illness Chief complaint: Transient nuerological symptoms this morning Narrative: Ms. Valladares is a 32W with history of migraines who presents with right sided weakness and difficulty speaking. She said she felt fine yesterday. Today she thinks she woke up feeling off, and then over the course of the morning noted she was unable to speak words correctly. She noted difficulty controlling her right sided and inability to walk straight. She had right sided numbness. She had a headache. Her symptoms resolved after an hour. She called a nursing hotline which recommended presenting to the ED. She has no history of miscarriages. In the ED workup was done, vitals notable for tachycardia, and elevated blood pressure. No fever. Labs notable for WBC 8.7, hgb 14.1. Creatinine 0.76. INR 1.0. Trop negative. CT head negative for acute process. Chest xray negative for acute process. MRI showed acute left basal ganglia infract, scattered T2 signal abnormalities in the deep white matter and focal M1 stenosis of the MCA. She was ordered for aspirin. Teleneurology was consulted and so no indication for code IR and to admit and treat medically. She was admitted for further treatment. Family history: mother with MS Social history: no smoking, other substance abuse Discharge Providers Provider Date of admission: 12/16/21 22:03 Discharge Date: 12/17/21 Primary care physician: Doctor Deanna MD Consults: 12/16/21 23:43 Consult to Discharge Planning Routine Comment: Consult to Occupational Therapy Evaluate & Treat Comment: Physician Instructions: Evaluate and treat Consult to Physical Therapy Evaluate & Treat Comment: Physician Instructions: Evaluate and Treat Consult to Speech Therapy Evaluate & Treat Comment: Physician Instructions: Evaluate and treat Discharge provider: Graham Cash MD Summary Hospital Course Discharge Diagnosis: 1. Acute CVA 2. Possible multiple sclerosis 3. Likely patent foramen ovale 4. Hyperlipidemia 5. Elevated blood pressure 6. History of migraine Hospital Course: Ms. Valladares was admitted with difficulty with speech and right sided clumsiness and weakness. Her symptoms improved. She did have tongue fasciculations noted. Imaging confirmed a basal ganglia stroke. MR stroke protocol initial concern for possible M1 MCA stenosis, but CTA head/neck showed no evidence of stenosis. Telestroke consulted and recommended against TPA due to improving symptoms. She was started on aspirin and statin and improved. She had an ECHO done with bubble study that was concerning for a PFO and possible etiology of her stroke. She had elevated cholesterol and started on statin. She was started on aspirin. Blood pressure was elevated but she was allowed permissive hypertension and recommended follow up with PCP to determine if there was need to start anti- hypertensives. She was referred to neurology. She was referred to cardiology to consider PFO closure. She was recommended to avoid any migraine medications she had at home (until talking with a PCP) as they may cause increase of stroke. Exam Vital Signs (past 8 hours): - 12/17/21 07:52 Temperature 97.9 F Pulse Rate 85 Respiratory Rate 16 Blood Pressure 184/111 H Pulse Oximetry 97 Oxygen Flow Rate 0 Oxygen Delivery Method Room Air Oxygen Flow Rate 0 Narrative Exam Narrative: GEN: no acute distress CV: regular rate and rhythm, no murmurs PULM: clear bilaterally ABD: soft, nontender, nondistended, no organomegaly EXT: warm and well perfused with no edema NEURO: awake, alert oriented, CN 2-12 intact, sensation intact, 5/5 strength upper and lower extremities no cerebellar signs Objective Labs Result Diagrams: 12/16/21 17:12 12/16/21 17:12 Labs: Laboratory Results - last 24 hr 12/16/21 12/16/21 12/16/21 17:12 17:12 17:12 WBC 8.7 RBC 4.91 Hgb 14.1 Hct 40.9 MCV 83.3 MCH 28.8 MCHC 34.6 RDW 14.2 Plt Count 406 H Neut % (Auto) 65.1 Lymph % (Auto) 28.2 [place] % (Auto) 5.2 Eos % (Auto) 1.1 L Baso % (Auto) 0.4 Neut # (Auto) 5700 Lymph # (Auto) 2500 [place] # (Auto) 500 Eos # (Auto) 100 Baso # (Auto) 0 PT 11.6 INR 1.0 APTT 37 H Sodium 140 Potassium 3.6 Chloride 104 Carbon Dioxide 23 BUN 14 Creatinine 0.76 Estimated GFR > 60 BUN/Creatinine Ratio 18.4 Glucose 121 H Hemoglobin A1c Calcium 9.5 Magnesium 2.2 Total Bilirubin 0.4 AST 23 ALT 31 Alkaline Phosphatase 61 Total Creatine Kinase 50 CK-MB (CK-2) TNP CK-MB (CK-2) Rel Index TNP Troponin I < 0.012 Total Protein 8.1 Albumin 4.5 Globulin 3.6 Albumin/Globulin Ratio 1.3 Triglycerides Cholesterol LDL Cholesterol, Calc HDL Cholesterol Serum , Qual SARS-CoV-2 (PCR) 12/16/21 12/16/21 12/17/21 17:12 21:40 04:51 WBC RBC Hgb Hct MCV MCH MCHC RDW Plt Count Neut % (Auto) Lymph % (Auto) [place] % (Auto) Eos % (Auto) Baso % (Auto) Neut # (Auto) Lymph # (Auto) [place] # (Auto) Eos # (Auto) Baso # (Auto) PT INR APTT Sodium Potassium Chloride Carbon Dioxide BUN Creatinine Estimated GFR BUN/Creatinine Ratio Glucose Hemoglobin A1c 5.1 Calcium Magnesium Total Bilirubin AST ALT Alkaline Phosphatase Total Creatine Kinase CK-MB (CK-2) CK-MB (CK-2) Rel Index Troponin I Total Protein Albumin Globulin Albumin/Globulin Ratio Triglycerides Cholesterol LDL Cholesterol, Calc HDL Cholesterol Serum , Qual Negative SARS-CoV-2 (PCR) Negative 12/17/21 04:51 WBC RBC Hgb Hct MCV MCH MCHC RDW Plt Count Neut % (Auto) Lymph % (Auto) [place] % (Auto) Eos % (Auto) Baso % (Auto) Neut # (Auto) Lymph # (Auto) [place] # (Auto) Eos # (Auto) Baso # (Auto) PT INR APTT Sodium Potassium Chloride Carbon Dioxide BUN Creatinine Estimated GFR BUN/Creatinine Ratio Glucose Hemoglobin A1c Calcium Magnesium Total Bilirubin AST ALT Alkaline Phosphatase Total Creatine Kinase CK-MB (CK-2) CK-MB (CK-2) Rel Index Troponin I Total Protein Albumin Globulin Albumin/Globulin Ratio Triglycerides 111 Cholesterol 254 H LDL Cholesterol, Calc 197 H HDL Cholesterol 35 L Serum , Qual SARS-CoV-2 (PCR) [facility] Social History household members: spouse Smoking Status: Never smoker Discharge Plan Discharge Plan Patient Disposition: Home Provider Discharge Comment: Ms. Valladares came in to the hospital with trouble speaking and right sided neurologic symptoms. She was found to have a stroke. She is started on aspirin and a statin to lower the risk of a repeat stroke. She should setup a PCP and follow closely to see if she needs to be started on a blood pressure medication. She is referred to a neurologist for follow up for her stroke and to evaluate for possible MS. Discharge orders & Medications Prescriptions: New atorvastatin [Lipitor] 20 mg Tablet 80 mg PO BEDTIME Qty: 30 0RF aspirin 81 mg Tablet,Delayed Release (Dr/Ec) 81 mg PO DAILY Qty: 30 0RF Follow up/Referrals: Doctor Huerta MD [Primary Care Provider] - Edilson King MD [Physician] - (new cva, echo with concerns for pfo, benefit from closure?) Mayte Pollard MD [Non-Staff] - (new CVA, question about possible multiple sclerosis) Diet/Activity/Treatments Diet: Regular Visit Report/Discharge Packet Instructions: Ischemic Stroke, High Blood Pressure, DI for Stroke-Ischemic Discharge Data Primary Care Provider: Doctor Deanna
== END 2021-12-17 12:06 | disposition home or self-care (01) ==
LOC: ED 21:43 → AC 22:59
PROVIDERS: Emergency Medicine; Admitting Provider Internal Medicine; Emergency Provider Emergency Medicine; Referring Provider Emergency Medicine; Visit Provider Internal Medicine
DX: I63.81 Other cerebral infarction due to occlusion or stenosis of small artery (principal); R29.700 NIHSS score 0; R03.0 Elevated blood-pressure reading, without diagnosis of hypertension; E78.5 Hyperlipidemia, unspecified; Z20.822 Contact with and (suspected) exposure to COVID-19
CPT/HCPCS: 36415; 70450; 70496; 70498; 70548; 70553; 71045; 80053; 80061; 82550; 83036; 83735; 84484; 84703; 85025; 85610; 85730; 87635; 93005; 93306; 96372; 99285; C9803; G0378; A9579; J1644; Q9967

== ENCOUNTER 2021-12-21 08:42 | Emergency (ER) | payer OTHER, SELFPAY ==
[2021-12-16 23:45] VITALS: BMI 32.5
[2021-12-21] VITALS (29 sets, daily range): BP systolic 83–137; BP diastolic 49–85; PULSE 93–150; RESP 21–28; TEMP 36.8; O2SAT 93–98
--- NOTE | 2021-12-21 08:59 | DI.CT.S_ITS ---
PROCEDURE: CT HEAD/BRAIN WO CON INDICATIONS: altered loc TECHNIQUE: Noncontrast 4.5 mm thick angled axial sections acquired from the foramen magnum to the vertex, with coronal and sagittal reformats. For radiation dose reduction, the following was used: automated exposure control, adjustment of mA and/or kV according to patient size. COMPARISON: [facility], MR, MR STROKE, 12/16/2021, 18:19. FINDINGS: Image quality: Motion degraded exam with limited evaluation of posterior fossa. CSF spaces: Basal cisterns are patent. No extra-axial fluid collections. Ventricles are normal in size and shape. Brain: No midline shift. No intracranial masses or hemorrhage. Roman-white matter interface is normal. Skull and face: Calvarium and visualized facial bones are intact, without suspicious lesions. Sinuses: Visualized sinuses and mastoids are clear. IMPRESSION: Limited motion degraded exam. No definite acute intracranial abnormality. Dictated by: Aung White M.D. on 12/21/2021 at 9:37 Approved by: Aung White M.D. on 12/21/2021 at 9:40
--- NOTE | 2021-12-21 09:26 | DI.CT.S_ITS ---
PROCEDURE: CT ANGIO CHEST ABDOMEN PELVIS INDICATIONS: DECREASE LOC TECHNIQUE: Precontrast 5 mm thick sections acquired from the lung apices to the iliac crests. After the administration of intravenous contrast, 2.5 mm thick sections again acquired from the lung apices to the iliac crests. Maximum intensity projection (MIP) oblique sagittal and coronal reformats were then acquired. For radiation dose reduction, the following was used: automated exposure control. COMPARISON: [facility], CT, CT HEAD/BRAIN WO CON, 12/21/2021, 9:35. FINDINGS: Right mainstem bronchus intubation. Retraction recommended. Multifocal left upper and lower lobe posterior dependent atelectasis likely due to the ETT position. Left upper lobe airspace opacities may be infectious or atelectatic, versus less likely pulmonary edema. There are some secretions in the left mainstem bronchus. No pleural effusion or pneumothorax. Normal heart size. No pericardial effusion. Thoracic aorta and main pulmonary trunk are normal in size. There is little to no IV contrast in the vasculature. This presumably reflects IV infiltration or other source of injection failure. Pulmonary embolism cannot be excluded. No threshold enlarged thoracic lymph node. Normal unenhanced CT appearance of the liver, spleen, gallbladder, pancreas, adrenal glands, and kidneys. No acute enteric process demonstrated. No free air or free fluid. No acute osseous abnormality. IMPRESSION: Right mainstem bronchus intubation. Retraction of the endotracheal tube recommended. Multifocal left upper and lower lobe ground-glass opacity may represent atelectasis due to the ETT position, although an infection would appear similar. Other less likely differential considerations such as pulmonary hemorrhage are not excluded. Given clinical concern for pulmonary embolism, repeat exam would be recommended as this study was essentially a noncontrast examination. Findings discussed with Amita at 9:50 a.m. on 12/21/2021 Dictated by: Aung White M.D. on 12/21/2021 at 9:47 Approved by: Aung White M.D. on 12/21/2021 at 9:58
[2021-12-21 09:38] LABS: Hematocrit 42.8 % (36-46); Hemoglobin 14.2 g/dL (12.0-16.0); Mean Corpuscular HGB Conc 33.2 % (30-36); Mean Corpuscular Hemoglobin 28.5 PG (26-34); Mean Corpuscular Volume 85.8 fL (80-100); Platelet Count 446 X10^3/uL (150-400); Red Blood Cell Count 4.99 X10^6/uL (4.0-5.2); Red Cell Distribution Width 14.2 % (11.6-14.8)
[2021-12-21 09:39] LABS: Add Manual Diff / Slide Review YES
[2021-12-21 09:40] LABS: INR 1.1 (0.9-1.3); PTT Partial Thromboplastin Tim 36 SECONDS (26-36); Prothrombin Time 12.1 SECONDS (10.1-12.7)
[2021-12-21 09:41] LABS: Albumin 4.7 g/dL (3.5-5.0); Albumin Globulin Ratio 1.3 (1.0-2.8); Alkaline Phosphatase 56 U/L (38-126); Aspartate Aminotransferase 713 IU/L (14-36); BUN Creatinine Ratio 8.3 (6-22); Bilirubin Total 0.6 mg/dL (0.2-1.3); Blood Urea Nitrogen 9 mg/dL (7-17); Calcium 8.9 mg/dL (8.4-10.2); Carbon Dioxide 16 mmol/L (22-32); Chloride 105 mmol/L (98-107); Creatine Kinase 62 U/L (30-135); Estimated Glomerular Filt Rate > 60 mL/min (>60); Globulin 3.6 g/dL (1.7-4.1); Glucose 174 mg/dL (70-100); Sodium 142 mmol/L (137-145); Total Protein 8.3 g/dL (6.3-8.2); Troponin I < 0.012 ng/mL (0.01-0.034)
[2021-12-21 09:42] LABS: D Dimer 396 ng/ml (<500)
--- NOTE | 2021-12-21 09:42 | ED_ITS ---
HPI - Chest Pain General Chief Complaint: Chest Pain Stated Complaint: burning pain in chest/back/arm hx of stroke Time Seen by Provider: 12/21/21 08:51 History of Present Illness HPI narrative: Patient is a 41-year-old female with recent history of CVA on 12/16/2021. She was admitted overnight. Her symptoms were difficulty speaking it during a meeting and some right sided weakness. Symptoms lasted for about an hour resolved. Basal ganglia stroke found on MR. MRI also concern for possible M1 MCA stenosis. However CTA did not show evidence of stenosis. She was started on aspirin with permissive hypertension. Echocardiogram did show a PFO. According to the aunt at bedside she woke up in the middle night with pain but between her scapulas all across her thoracic back going down both arms. He got to be bad enough she decided to come to the emergency department She was brought back to the ED where she had a seizure and unresponsiveness. She was found to be agonal breathing. Nasal trumpet was placed airway protection. However she quickly became pulseless in a Vfib arrest. She was cardioverted given amiodarone CPR was started ACLS protocol started. Related Data Previous Rx's Medication Instructions Recorded aspirin 81 mg tablet,delayed 81 mg PO DAILY #30 tabs 12/17/21 release atorvastatin 20 mg tablet (Lipitor) 80 mg PO BEDTIME #30 tabs 12/17/21 Allergies Allergy/AdvReac Type Severity Reaction Status Date / Time No Known Drug Allergies Allergy Verified 12/16/21 17:12 Review of Systems Review of Systems ROS Unobtainable: Unobtainable due to medical condition Patient History Social History household members: spouse Smoking Status: Never smoker Smoking Status: Never smoker alcohol intake frequency: other Substance Use Type: does not use Exam Initial Vital Signs Initial Vital Signs: Vital Signs Pulse Rate 105 H 12/21/21 10:13 Respiratory Rate 24 12/21/21 10:13 Pulse Oximetry 96 12/21/21 10:13 Gen.: Agonal breathing 40 years female, unresponsive HEENT: Pupils equal, mouth slightly cyanotic Neck: No JVD Lungs: Agonal breathing Cardiac: Faint pulses Abdomen: Soft Extremities: No gross bony deformity Neurologic: Unresponsive possible seizures Procedures Central Line Placement Right IJ: Patient Placed on Monitor/Pulse Ox: Yes MD Prep: mask, gown and gloves Central Line Prep: Chlorhexidine scrub and sterile drapes applied Ultrasound Used for Placement: Yes Post Procedure X-Ray: no pneumothorax seen Patient Tolerated Procedure: Well Additional Comments: Unsuccessful transport arrived Intubation sedative: Ketamine Mg Given: 200 paralytic: Succinylcholine Mg Given: 100 Laryngoscope: other ET Tube Size: 7.5 Tube Placement Confirmation: Visualized tube passing through cords, Equal breath sounds bilaterally, No breath sounds over epigastrium and Confirmation by capnometry Patient Tolerated Procedure: Well Course Orders Ordered: ED Orders 12/21/21 10:25 Test Urine Stat UA Complete [Urinalysis and Microscopic] Stat Urine Drug Screen, Rapid Stat 12/21/21 10:36 XR chest 1V Stat 12/21/21 11:02 ABG [Arterial Blood Gas] Stat Sodium Chloride (Normal Saline 0.9%) 1,000 mls @ 150 mls/hr IV CONT CHATA Fentanyl 1,000 mcg/ Dextrose 250 mls @ 18.55 mls/hr IV TITRATE CHATA; Protocol Midazolam HCl 50 mg/ Dextrose 250 mls @ 25 mls/hr IV TITRATE CHATA; Protocol NOREPINEPHRINE BITARTRATE/D5W (Levophed) 4 mg in 250 mls @ 30 mls/hr IV TITRATE CHATA; Protocol Heparin Sodium/Dextrose (Heparin Drip) 25,000 unit in 500 mls @ 20 mls/hr IV CONT CHATA; Protocol Last Admin: 12/21/21 10:19 Dose: 1,000 units/hr, 20 mls/hr Documented By: CHANI Discontinued Medications Heparin Sodium (Porcine) (Heparin 5,000 Unit/Ml Vial) 5,000 unit IV NOW ONE Stop: 12/21/21 10:06 Last Admin: 12/21/21 10:18 Dose: 5,000 unit Documented By: CHANI POTASSIUM CHLORIDE IN WATER (Potassium Cl 10 Meq/100 Ml Hetal) 10 meq in 100 mls @ 100 mls/hr IV Q1H CHATA Stop: 12/21/21 14:29 Vital Signs Vital signs: Vital Signs - 8 hr 12/21/21 11:08 Temperature 98.3 F MDM - Chest Pain Lab Data Result diagrams: 12/21/21 09:05 12/21/21 09:05 Labs: Lab Results 12/21/21 12/21/21 12/21/21 Range/Units 09:05 09:05 09:05 WBC 5.0 (4.5-11.0) X10^3/uL RBC 4.99 (4.0-5.2) X10^6/uL Hgb 14.2 (12.0-16.0) g/dL Hct 42.8 (36-46) % MCV 85.8 (80-100) fL MCH 28.5 (26-34) PG MCHC 33.2 (30-36) % RDW 14.2 (11.6-14.8) % Plt Count 446 H (150-400) X10^3/uL Neut % (Auto) Not Reportable Lymph % (Auto) Not Reportable [place] % (Auto) Not Reportable Eos % (Auto) Not Reportable Baso % (Auto) Not Reportable Lymph # (Auto) Not Reportable [place] # (Auto) Not Reportable Baso # (Auto) Not Reportable Total Counted 100 Seg Neutrophils % 4.0 L (38-70) % Lymphocytes % (Manual) 90.0 H (25-45) % Monocytes % (Manual) 5.0 (2-11) % Eosinophils % (Manual) 1.0 L (2-4) % Neutrophils # (Manual) 200 L (2994-6503) /uL Plt Morphology Comment RBC Morphology Normal morphology PT 12.1 (10.1-12.7) SECONDS INR 1.1 (0.9-1.3) APTT 36 (26-36) SECONDS D-Dimer 396 (<500) ng/ml ABG pH (7.35-7.45) ABG pCO2 (35-45) mmHg ABG pO2 (80-100) mmHg ABG HCO3 (22-26) mmol/L ABG Total CO2 (21-31) mmol/L ABG O2 Saturation (95-100) % ABG Base Excess (-2-2) mmol/L FiO2 Sodium 142 (137-145) mmol/L Potassium 2.6 L* (3.4-5.1) mmol/L Chloride 105 (98-107) mmol/L Carbon Dioxide 16 L (22-32) mmol/L BUN 9 (7-17) mg/dL Creatinine 1.08 H (0.52-1.04) mg/dL Estimated GFR > 60 (>60) mL/min BUN/Creatinine Ratio 8.3 (6-22) Glucose 174 H (70-100) mg/dL Lactate (0.7-2.1) mmol/L Calcium 8.9 (8.4-10.2) mg/dL Total Bilirubin 0.6 (0.2-1.3) mg/dL AST 713 H (14-36) IU/L ALT 798 H (<35) IU/L Alkaline Phosphatase 56 (38-126) U/L Total Creatine Kinase 62 (30-135) U/L CK-MB (CK-2) TNP CK-MB (CK-2) Rel Index TNP Troponin I < 0.012 (0.01-0.034) ng/mL NT-Pro-B Natriuret Pep (<125) pg/mL Total Protein 8.3 H (6.3-8.2) g/dL Albumin 4.7 (3.5-5.0) g/dL Globulin 3.6 (1.7-4.1) g/dL Albumin/Globulin Ratio 1.3 (1.0-2.8) Lipase 145 (23-300) U/L Urine Color Urine Appearance Urine pH (4.5-8.0) Ur Specific [place] (1.000-1.035) Urine Protein (Negative) Urine Glucose (UA) (Negative) g/dL Urine Ketones (NEGATIVE) Urine Occult Blood (Negative) Urine Nitrate (Negative) Urine Bilirubin (NEGATIVE) Urine Urobilinogen (0.2) E.U./dL Ur Leukocyte Esterase (NEGATIVE) Urine RBC (0-5/HPF) Urine WBC (0-5/HPF) Ur Squamous Epith Cells (0-5/HPF) Urine Bacteria (None) Ur Culture Indicated? Urine Test (Negative) U Opiates 300ng/mL cut (Negative) Ur Oxycodone Screen (Negative) Urine Methadone Screen (Negative) Ur Barbiturates Screen (Negative) U Tricyclic Antidepress (Negative) Ur Phencyclidine Scrn (Negative) Ur Amphetamines Screen (Negative) U Methamphetamines Scrn (Negative) Ur MDMA Scrn (Ecstasy) (Negative) U Benzodiazepines Scrn (Negative) Urine Cocaine Screen (Negative) U Marijuana (THC) Screen (Negative) SARS-CoV-2 (PCR) (Negative) 09/20/22 09/20/22 09/20/22 Range/Units 09:05 09:05 09:51 WBC (4.5-11.0) X10^3/uL RBC (4.0-5.2) X10^6/uL Hgb (12.0-16.0) g/dL Hct (36-46) % MCV (80-100) fL MCH (26-34) PG MCHC (30-36) % RDW (11.6-14.8) % Plt Count (150-400) X10^3/uL Neut % (Auto) Lymph % (Auto) [place] % (Auto) Eos % (Auto) Baso % (Auto) Lymph # (Auto) [place] # (Auto) Baso # (Auto) Total Counted Seg Neutrophils % (38-70) % Lymphocytes % (Manual) (25-45) % Monocytes % (Manual) (2-11) % Eosinophils % (Manual) (2-4) % Neutrophils # (Manual) ([id number]) /uL Plt Morphology Comment RBC Morphology PT (10.1-12.7) SECONDS INR (0.9-1.3) APTT (26-36) SECONDS D-Dimer (<500) ng/ml ABG pH (7.35-7.45) ABG pCO2 (35-45) mmHg ABG pO2 (80-100) mmHg ABG HCO3 (22-26) mmol/L ABG Total CO2 (21-31) mmol/L ABG O2 Saturation (95-100) % ABG Base Excess (-2-2) mmol/L FiO2 Sodium (137-145) mmol/L Potassium (3.4-5.1) mmol/L Chloride (98-107) mmol/L Carbon Dioxide (22-32) mmol/L BUN (7-17) mg/dL Creatinine (0.52-1.04) mg/dL Estimated GFR (>60) mL/min BUN/Creatinine Ratio (6-22) Glucose (70-100) mg/dL Lactate 8.3 H* (0.7-2.1) mmol/L Calcium (8.4-10.2) mg/dL Total Bilirubin (0.2-1.3) mg/dL AST (14-36) IU/L ALT (<35) IU/L Alkaline Phosphatase (38-126) U/L Total Creatine Kinase (30-135) U/L CK-MB (CK-2) CK-MB (CK-2) Rel Index Troponin I (0.01-0.034) ng/mL NT-Pro-B Natriuret Pep 52 (<125) pg/mL Total Protein (6.3-8.2) g/dL Albumin (3.5-5.0) g/dL Globulin (1.7-4.1) g/dL Albumin/Globulin Ratio (1.0-2.8) Lipase (23-300) U/L Urine Color Urine Appearance Urine pH (4.5-8.0) Ur Specific [place] (1.000-1.035) Urine Protein (Negative) Urine Glucose (UA) (Negative) g/dL Urine Ketones (NEGATIVE) Urine Occult Blood (Negative) Urine Nitrate (Negative) Urine Bilirubin (NEGATIVE) Urine Urobilinogen (0.2) E.U./dL Ur Leukocyte Esterase (NEGATIVE) Urine RBC (0-5/HPF) Urine WBC (0-5/HPF) Ur Squamous Epith Cells (0-5/HPF) Urine Bacteria (None) Ur Culture Indicated? Urine Test (Negative) U Opiates 300ng/mL cut (Negative) Ur Oxycodone Screen (Negative) Urine Methadone Screen (Negative) Ur Barbiturates Screen (Negative) U Tricyclic Antidepress (Negative) Ur Phencyclidine Scrn (Negative) Ur Amphetamines Screen (Negative) U Methamphetamines Scrn (Negative) Ur MDMA Scrn (Ecstasy) (Negative) U Benzodiazepines Scrn (Negative) Urine Cocaine Screen (Negative) U Marijuana (THC) Screen (Negative) SARS-CoV-2 (PCR) Negative (Negative) 12/21/21 12/21/21 12/21/21 Range/Units 10:25 10:25 10:25 WBC (4.5-11.0) X10^3/uL RBC (4.0-5.2) X10^6/uL Hgb (12.0-16.0) g/dL Hct (36-46) % MCV (80-100) fL MCH (26-34) PG MCHC (30-36) % RDW (11.6-14.8) % Plt Count (150-400) X10^3/uL Neut % (Auto) Lymph % (Auto) [place] % (Auto) Eos % (Auto) Baso % (Auto) Lymph # (Auto) [place] # (Auto) Baso # (Auto) Total Counted Seg Neutrophils % (38-70) % Lymphocytes % (Manual) (25-45) % Monocytes % (Manual) (2-11) % Eosinophils % (Manual) (2-4) % Neutrophils # (Manual) (6930-5126) /uL Plt Morphology Comment RBC Morphology PT (10.1-12.7) SECONDS INR (0.9-1.3) APTT (26-36) SECONDS D-Dimer (<500) ng/ml ABG pH (7.35-7.45) ABG pCO2 (35-45) mmHg ABG pO2 (80-100) mmHg ABG HCO3 (22-26) mmol/L ABG Total CO2 (21-31) mmol/L ABG O2 Saturation (95-100) % ABG Base Excess (-2-2) mmol/L FiO2 Sodium (137-145) mmol/L Potassium (3.4-5.1) mmol/L Chloride (98-107) mmol/L Carbon Dioxide (22-32) mmol/L BUN (7-17) mg/dL Creatinine (0.52-1.04) mg/dL Estimated GFR (>60) mL/min BUN/Creatinine Ratio (6-22) Glucose (70-100) mg/dL Lactate (0.7-2.1) mmol/L Calcium (8.4-10.2) mg/dL Total Bilirubin (0.2-1.3) mg/dL AST (14-36) IU/L ALT (<35) IU/L Alkaline Phosphatase (38-126) U/L Total Creatine Kinase (30-135) U/L CK-MB (CK-2) CK-MB (CK-2) Rel Index Troponin I (0.01-0.034) ng/mL NT-Pro-B Natriuret Pep (<125) pg/mL Total Protein (6.3-8.2) g/dL Albumin (3.5-5.0) g/dL Globulin (1.7-4.1) g/dL Albumin/Globulin Ratio (1.0-2.8) Lipase (23-300) U/L Urine Color Yellow Urine Appearance Cloudy Urine pH 6.5 (4.5-8.0) Ur Specific [place] <=1.005 (1.000-1.035) Urine Protein 3+ H (Negative) Urine Glucose (UA) Trace H (Negative) g/dL Urine Ketones Negative (NEGATIVE) Urine Occult Blood 2+ H (Negative) Urine Nitrate Negative (Negative) Urine Bilirubin Negative (NEGATIVE) Urine Urobilinogen 0.2 (0.2) E.U./dL Ur Leukocyte Esterase Negative (NEGATIVE) Urine RBC 10-30/hpf H (0-5/HPF) Urine WBC 1-5/hpf (0-5/HPF) Ur Squamous Epith Cells 1-5 /hpf (0-5/HPF) Urine Bacteria None seen (None) Ur Culture Indicated? Cult not indicated Urine Test Negative (Negative) U Opiates 300ng/mL cut Negative (Negative) Ur Oxycodone Screen Negative (Negative) Urine Methadone Screen Negative (Negative) Ur Barbiturates Screen Negative (Negative) U Tricyclic Antidepress Negative (Negative) Ur Phencyclidine Scrn Negative (Negative) Ur Amphetamines Screen Negative (Negative) U Methamphetamines Scrn Negative (Negative) Ur MDMA Scrn (Ecstasy) Negative (Negative) U Benzodiazepines Scrn Negative (Negative) Urine Cocaine Screen Negative (Negative) U Marijuana (THC) Screen Negative (Negative) SARS-CoV-2 (PCR) (Negative) 12/21/21 Range/Units 11:02 WBC (4.5-11.0) X10^3/uL RBC (4.0-5.2) X10^6/uL Hgb (12.0-16.0) g/dL Hct (36-46) % MCV (80-100) fL MCH (26-34) PG MCHC (30-36) % RDW (11.6-14.8) % Plt Count (150-400) X10^3/uL Neut % (Auto) Lymph % (Auto) [place] % (Auto) Eos % (Auto) Baso % (Auto) Lymph # (Auto) [place] # (Auto) Baso # (Auto) Total Counted Seg Neutrophils % (38-70) % Lymphocytes % (Manual) (25-45) % Monocytes % (Manual) (2-11) % Eosinophils % (Manual) (2-4) % Neutrophils # (Manual) (1769-2906) /uL Plt Morphology Comment RBC Morphology PT (10.1-12.7) SECONDS INR (0.9-1.3) APTT (26-36) SECONDS D-Dimer (<500) ng/ml ABG pH 7.22 L* (7.35-7.45) ABG pCO2 47.6 H (35-45) mmHg ABG pO2 97 (80-100) mmHg ABG HCO3 19 L (22-26) mmol/L ABG Total CO2 21 (21-31) mmol/L ABG O2 Saturation 96 (95-100) % ABG Base Excess -8.0 L (-2-2) mmol/L FiO2 100 Sodium (137-145) mmol/L Potassium (3.4-5.1) mmol/L Chloride (98-107) mmol/L Carbon Dioxide (22-32) mmol/L BUN (7-17) mg/dL Creatinine (0.52-1.04) mg/dL Estimated GFR (>60) mL/min BUN/Creatinine Ratio (6-22) Glucose (70-100) mg/dL Lactate (0.7-2.1) mmol/L Calcium (8.4-10.2) mg/dL Total Bilirubin (0.2-1.3) mg/dL AST (14-36) IU/L ALT (<35) IU/L Alkaline Phosphatase (38-126) U/L Total Creatine Kinase (30-135) U/L CK-MB (CK-2) CK-MB (CK-2) Rel Index Troponin I (0.01-0.034) ng/mL NT-Pro-B Natriuret Pep (<125) pg/mL Total Protein (6.3-8.2) g/dL Albumin (3.5-5.0) g/dL Globulin (1.7-4.1) g/dL Albumin/Globulin Ratio (1.0-2.8) Lipase (23-300) U/L Urine Color Urine Appearance Urine pH (4.5-8.0) Ur Specific [place] (1.000-1.035) Urine Protein (Negative) Urine Glucose (UA) (Negative) g/dL Urine Ketones (NEGATIVE) Urine Occult Blood (Negative) Urine Nitrate (Negative) Urine Bilirubin (NEGATIVE) Urine Urobilinogen (0.2) E.U./dL Ur Leukocyte Esterase (NEGATIVE) Urine RBC (0-5/HPF) Urine WBC (0-5/HPF) Ur Squamous Epith Cells (0-5/HPF) Urine Bacteria (None) Ur Culture Indicated? Urine Test (Negative) U Opiates 300ng/mL cut (Negative) Ur Oxycodone Screen (Negative) Urine Methadone Screen (Negative) Ur Barbiturates Screen (Negative) U Tricyclic Antidepress (Negative) Ur Phencyclidine Scrn (Negative) Ur Amphetamines Screen (Negative) U Methamphetamines Scrn (Negative) Ur MDMA Scrn (Ecstasy) (Negative) U Benzodiazepines Scrn (Negative) Urine Cocaine Screen (Negative) U Marijuana (THC) Screen (Negative) SARS-CoV-2 (PCR) (Negative) Imaging Data CT scan - chest: My Impression: Jenelle Valladares MR#: [id number] : 1980 Acct:[id number] Age/Sex: 41 / F Date of Service: 12/21/21 Loc: ED Accession Number: [id number] ?? Procedure: CT angio chest abdomen pelvis Ordering Provider: Faith Levi D.O. PROCEDURE:? CT ANGIO CHEST ABDOMEN PELVIS ? INDICATIONS:? DECREASE LOC ? TECHNIQUE:? Precontrast 5 mm thick sections acquired from the lung apices to the iliac crests.? After the administration of intravenous contrast, 2.5 mm thick sections again acquired from the lung apices to the iliac crests.? Maximum intensity projection (MIP) oblique sagittal and coronal reformats were then acquired.? For radiation dose reduction, the [facility] was used:? automated exposure control.? ? COMPARISON:? [facility], CT, CT HEAD/BRAIN WO CON, 12/21/2021, 9:35. ? FINDINGS:? Right mainstem bronchus intubation.? Retraction recommended.? Multifocal left upper and lower lobe posterior dependent atelectasis likely due to the ETT position.? Left upper lobe airspace opacities may be infectious or atelectatic, versus less likely pulmonary edema.? There are some secretions in the left mainstem bronchus.? No pleural effusion or pneumothorax.? Normal heart size.? No pericardial effusion.? Thoracic aorta and main pulmonary trunk are normal in size.? There is little to no IV contrast in the vasculature.? This presumably reflects IV infiltration or other source of injection failure.? Pulmonary embolism cannot be excluded.? No threshold enlarged thoracic lymph node. ? Normal unenhanced CT appearance of the liver, spleen, gallbladder, pancreas, adrenal glands, and kidneys.? No acute enteric process demonstrated.? No free air or free fluid.? No acute osseous abnormality. ? ? IMPRESSION:? ? Right mainstem bronchus intubation.? Retraction of the endotracheal tube recommended. ? Multifocal left upper and lower lobe ground-glass opacity may represent atelectasis due to the ETT position, although an infection would appear similar.? Other less likely differential considerations such as pulmonary hemorrhage are not excluded. ? Given clinical concern for pulmonary embolism, repeat exam would be recommended as this study was essentially a noncontrast examination. ? Findings discussed with Amita at 9:50 a.m. on 12/21/2021 ? ? ? Dictated by: Aung White M.D. on 12/21/2021 at 9:47 ? ? Approved by: Aung White M.D. on 12/21/2021 at 9:58 ? CT scan - head: Radiologist's Impression: [place] [address] CT Scan Report Signed Patient: Jenelle Valladares MR#: [id number] : 1980 Acct:[id number] Age/Sex: 41 / F Date of Service: 12/21/21 Loc: ED Accession Number: [id number] ?? Procedure: CT head/brain wo con Ordering Provider: Faith Levi D.O. PROCEDURE:? CT HEAD/BRAIN WO CON ? INDICATIONS:? altered loc ? TECHNIQUE:? Noncontrast 4.5 mm thick angled axial sections acquired from the foramen magnum to the vertex, with coronal and sagittal reformats.? For radiation dose reduction, the following was used:? automated exposure control, adjustment of mA and/or kV according to patient size.? ? COMPARISON:? [facility], , STROKE, 12/16/2021, 18:19. ? FINDINGS:? Image quality:? Motion degraded exam with limited evaluation of posterior fossa. ? CSF spaces:? Basal cisterns are patent.? No extra-axial fluid collections.? Ventricles are normal in size and shape.? ? Brain:? No midline shift.? No intracranial masses or hemorrhage.? Roman-white matter interface is normal.? ? Skull and face:? Calvarium and visualized facial bones are intact, without suspicious lesions.? ? Sinuses:? Visualized sinuses and mastoids are clear.? ? IMPRESSION:? Limited motion degraded exam.? No definite acute intracranial abnormality. ? ? Dictated by: Aung White M.D. on 12/21/2021 at 9:37? Chest x-ray: My Impression: no pneumo Radiologist's Impression: Jenelle simms MR#: [id number] : 1980 Acct:[id number] Age/Sex: 41 / F Date of Service: 12/21/21 Loc: ED Accession Number: [id number] ?? Procedure: XR chest 1V Ordering Provider: Faith Levi D.O. PROCEDURE:? XR CHEST 1V ? INDICATIONS:? LINE PLACEMENT ? TECHNIQUE:? One view of the chest was acquired.? ? COMPARISON:? [facility], , XR CHEST 1V, 12/16/2021, 17:07. ? FINDINGS:? ? Endotracheal tube terminates in appropriate position in the thoracic trachea.? Enteric tube terminates in the stomach.? No pneumothorax or pleural effusion.? Low lung volumes.? No acute airspace opacity.? Heart size normal. ? IMPRESSION:? No acute finding.? Support devices in appropriate position. ? ? Dictated by: Aung White M.D. on 12/21/2021 at 11:00 ? ? Approved by: Aung White M.D. on 12/21/2021 at 11:01 ECG Data Interpretation: ST elevation in inferior artifact is noted but certainly changes from previous EKG MDM Narrative Medical decision making narrative: Patient is coded VFib arrest intubated with ROSC. Amnio drip is started. She did make it to the CT scanner in a stable condition to rule out acute intracranial hemorrhage with recent CVA. Head CT is negative CT angio chest abdomen pelvis also did not show anything concerning. Questionable contrast with adequate or not. EKG was finally done when she returned back to the room which does show ST elevation. Acute STEMI with a VFib arrest and sudden cardiac arrest does clinically correlate. Heparin drip was started. Blood pressures are soft in the 90s, with sedated medications. IV peripheral Levophed is a started temporarily. Lactate elevated at 8.3 either do from a rest or possible seizure. Dr. Jeter at [facility] ED is updated patient's symptoms test results kindly accepts patient Attempted right IJ just prior to transfer for multiple IV access and hypotension with Levophed. If it was started peripherally unfortunately transfer came and 1st attempt was unsuccessful. Decision to transfer with peripheral Levophed was made versus continuing for central line. Chest x-ray prior to transfer is negative for pneumothorax read by me. Critical Care Time Critical Care Time Critical Care Time: Yes Total Critical Care Time: 75 Attestation: The high probability of a clinically significant, sudden or life threatening deterioration of the [cardiovascular] system(s) required my full and direct attention, intervention and personal management. The aggregate critical care time was 75 minutes. This time is in addition to time spent performing reported procedures but includes the following: [x] Data Review and interpretation [x] Patient assessment and monitoring of vital signs [x] Documentation [x] Medication orders and management Discharge Plan Departure Patient Disposition: [facility] Clinical Impression: ST elevation (STEMI) myocardial infarction Prescriptions: No Action atorvastatin [Lipitor] 20 mg Tablet 80 mg PO BEDTIME Qty: 30 0RF aspirin 81 mg Tablet,Delayed Release (Dr/Ec) 81 mg PO DAILY Qty: 30 0RF Referrals: Miscellaneous,Doctor, MD [Primary Care Provider] -
[2021-12-21 09:49] LABS: Alanine Aminotransferase 798 IU/L (<35); Lactate (Lactic Acid) 8.3 mmol/L (0.7-2.1)
[2021-12-21 09:50] LABS: HEMOLYSIS 20 (0-50); Lipase 145 U/L (23-300); Potassium 2.6 mmol/L (3.4-5.1)
[2021-12-21 09:55] LABS: NT-proBNP (BNP-Adult 18+) 52 pg/mL (<125)
[2021-12-21 10:05] LABS: Neutrophils Absolute Manual 200 /uL (3000-5900); Total Cells Counted 100
[2021-12-21 10:07] LABS: RBC Morphology Normal Morphology
[2021-12-21 10:12] LABS: COVID19 -Nasal RAPID Negative (Negative)
[2021-12-21] MEDS: HEPARIN 5,000 UNIT/ML VIAL 5000 UNIT IV (10:18)
[2021-12-21] MEDS: HEPARIN DRIP 25,000 UNIT/500 ML IV.SOLN 20 UNIT IV (10:19)
--- NOTE | 2021-12-21 10:36 | DI.RAD.S_ITS ---
PROCEDURE: XR CHEST 1V INDICATIONS: LINE PLACEMENT TECHNIQUE: One view of the chest was acquired. COMPARISON: [facility], CR, XR CHEST 1V, 12/16/2021, 17:07. FINDINGS: Endotracheal tube terminates in appropriate position in the thoracic trachea. Enteric tube terminates in the stomach. No pneumothorax or pleural effusion. Low lung volumes. No acute airspace opacity. Heart size normal. IMPRESSION: No acute finding. Support devices in appropriate position. Dictated by: Aung White M.D. on 12/21/2021 at 11:00 Approved by: Aung White M.D. on 12/21/2021 at 11:01
--- NOTE | 2021-12-21 10:55 | PC.NURSE ---
Patient clothes, shoes and watch were placed in patient belonging bag. Watch was labeled with patient sticker and placed in shoe. Patient belonging bag placed on [facility] stretcher by EMT Ernesto from [facility].
[2021-12-21 11:19] LABS: PCO2 ABG 47.6 mmHg (35-45); PO2 ABG 97 mmHg (80-100); pH ABG 7.22 (7.35-7.45)
[2021-12-21 11:20] LABS: Fractionated Inspired Oxygen 100; HCO3 ABG 19 mmol/L (22-26); Oxygen Saturation ABG 96 % (95-100); TCO2 ABG 21 mmol/L (21-31)
[2021-12-21 11:33] LABS: Appearance Urine UA CLOUDY; Bilirubin Urine UA NEGATIVE (NEGATIVE); Color Urine UA YELLOW; Glucose Urine UA TRACE g/dL (Negative); Ketones Urine UA NEGATIVE (NEGATIVE); Leukocyte Esterase Urine UA NEGATIVE (NEGATIVE); Nitrite Urine UA NEGATIVE (Negative); Occult Blood Urine UA 2+ (Negative); Pregnancy Test Urine Negative (Negative); Protein Urine UA 3+ (Negative); Specific Gravity Urine UA <=1.005 (1.000-1.035); Urobilinogen Urine UA 0.2 E.U./dL (0.2); pH Urine UA 6.5 (4.5-8.0)
[2021-12-21 11:37] LABS: Reflexed Lactate in 2 Hours Y
[2021-12-21 11:42] LABS: RBC Urine 10-30/HPF (0-5/HPF); WBC Urine 1-5/HPF (0-5/HPF)
[2021-12-21 11:43] LABS: Bacteria Urine None Seen; Culture Indicated Urine Cult Not Indicated; Squamous Epithelial Cell Urine 1-5 /HPF (0-5/HPF)
[2021-12-21 11:45] LABS: UR Morphine/Opiate cutoff 300 Negative (Negative); Ur Creatinine Normal (Normal); Ur Specific Gravity Normal (Normal); Urine Amphetamines Negative (Negative); Urine Barbiturates Negative (Negative); Urine Benzodiazepines Negative (Negative); Urine Cocaine Negative (Negative); Urine MDMA Negative (Negative); Urine Methadone Negative (Negative); Urine Methamphetamines Negative (Negative); Urine Oxycodone Negative (Negative); Urine Phencyclidine Negative (Negative); Urine Tetrahydrocannabinol Negative (Negative); Urine Tricyclic Antidepressant Negative (Negative); Urine pH Normal (Normal)
--- NOTE | 2021-12-28 09:01 | PC.NURSE ---
Late entry: Heparin gtt running as ordered and documented transferred to care of critical care transport team at 1120am.
== END 2021-12-21 11:20 | disposition short-term general hospital (02) ==
PROVIDERS: Emergency Provider Emergency Medicine
DX: I21.3 ST elevation (STEMI) myocardial infarction of unspecified site (principal); M54.6 Pain in thoracic spine; Z20.822 Contact with and (suspected) exposure to COVID-19
CPT/HCPCS: 31500; 36415; 36556; 36600; 70450; 71045; 71275; 74174; 80053; 80305; 81001; 81025; 82550; 82805; 83605; 83690; 83880; 84484; 85007; 85025; 85379; 85610; 85730; 87635; 93005; 93010; 96365; 96375; 99285; 99291; 99292; C9803; J1644; Q9967

== ENCOUNTER 2022-03-22 09:59 | Emergency (ER) | payer OTHER, SELFPAY ==
[2021-12-16 23:45] VITALS: BMI 32.5
[2021-12-21 10:19] VITALS: PULSE 105; RESP 21
[2022-03-22 10:11] VITALS: BP 178/99; PULSE 72; RESP 20; TEMP 36.9; O2SAT 98; BMI 30.1
--- NOTE | 2022-03-22 10:21 | DI.US.S_ITS ---
PROCEDURE: US PERIPH VENOUS UP EXTREM LT INDICATIONS: SWELLING TECHNIQUE: Real-time imaging, as well as color and pulse Doppler interrogation, was performed of the left upper extremity deep veins from the inferior neck to the antecubital fossa. COMPARISON: None. FINDINGS: There is intraluminal filling defect within 1 of the branches of left brachial vein in proximal to distal upper arm with absence of flow. IMPRESSION: Occlusive venous thrombosis involving 1 of the left brachial vein branches. No evidence of DVT is seen in rest of the visualized left upper extremity veins. Dictated by: Jean Marie Castaneda M.D. on 03/22/2022 at 11:55 Approved by: Jean Marie Castaneda M.D. on 03/22/2022 at 11:57
--- NOTE | 2022-03-22 10:21 | DI.RAD.S_ITS ---
PROCEDURE: XR CHEST 1V INDICATIONS: chest pain TECHNIQUE: One view of the chest was acquired. COMPARISON: [facility], CR, XR CHEST 1V, 12/21/2021, 10:28. FINDINGS: Surgical changes and devices: Dual-chamber left-sided pacemaker/defibrillator present Lungs and pleura: Lungs are clear. No pleural effusions or pneumothorax. Mediastinum: Mediastinal contours appear normal. Heart size is normal. Bones and chest wall: No suspicious bony lesions. Overlying soft tissues appear unremarkable. IMPRESSION: No acute cardiopulmonary findings Approved by: Alex Holley M.D. on 03/22/2022 at 10:38
--- NOTE | 2022-03-22 10:21 | ED.EXTPRO ---
HPI - Extremity Problem General Chief complaint: Extremity Problem,Nontraumatic Stated complaint: LT arm pain and it looks purple Time Seen by Provider: 03/22/22 10:12 Source: patient Mode of arrival: Ambulatory History of Present Illness HPI Narrative: Patient is a 41-year-old female has a history of CVA symptoms of difficulty finding words without residual symptoms, post cardiac arrest with defibrillator presents today with left arm cyanosis. In December she was diagnosed with a stroke 5 days later she had a cardiac arrest with pacemaker placed she does take Plavix daily. Last night she noticed that her left arm was aching a little bit this morning she noticed that it is certainly different color than her right arm. She has no chest pain she is not short of breath. She has no fever chills nausea vomiting. She otherwise is feeling okay. Related Data Previous Rx's Medication Instructions Recorded aspirin 81 mg tablet,delayed 81 mg PO DAILY #30 tabs 12/17/21 release atorvastatin 20 mg tablet (Lipitor) 80 mg PO BEDTIME #30 tabs 12/17/21 apixaban 5 mg tablet (Eliquis) 5 mg PO BID #90 tabs 03/22/22 Allergies Allergy/AdvReac Type Severity Reaction Status Date / Time No Known Drug Allergies Allergy Verified 12/16/21 17:12 Review of Systems Review of Systems Narrative: GENERAL: Denies chills, fatigue, malaise, fever, sweats, travel HEENT: Denies sinus pain, ear pain, sore throat, difficulty swallowing, neck pain RESPIRATORY: Denies dyspnea, cough, wheezing, hemoptysis, sputum. CARDIOVASCULAR: See HPI GASTROINTESTINAL: Denies nausea, vomiting, abdominal pain, diarrhea, constipation, melena. : Denies dysuria, frequency, incontinence, hematuria, urinary retention, flank pain. MUSCULOSKELETAL: Denies weakness, joint pain, or bony pain SKIN: No rash, no erythema, no pruritus NEUROLOGIC: See HPI PSYCHIATRIC: No concerning psychosocial issues. 12 point review of systems is negative except for those stated above and HPI Patient History Social History household members: spouse Smoking Status: Never smoker Smoking Status: Never smoker alcohol intake frequency: other Substance Use Type: does not use Exam Initial Vital Signs Initial Vital Signs: Vital Signs Temperature 98.5 F 03/22/22 10:11 Pulse Rate 72 03/22/22 10:11 Respiratory Rate 20 03/22/22 10:11 Blood Pressure 178/99 H 03/22/22 10:11 Pulse Oximetry 98 03/22/22 10:11 Oxygen Delivery Method 03/22/22 10:11 GENERAL: Alert pleasant 41-year-old female and in no acute distress. HEENT: Head atraumatic,EOMI, pupils reactive, face symmetric, moist mucous membranes CARDIOVASCULAR: Regular rate and rhythm without murmurs, rubs or gallops. RESPIRATORY: Breath sounds equal bilaterally, no wheezes rales or rhonchi. ABDOMEN: Soft, nontender. Normoactive bowel sounds all 4 quadrants. No guarding or rebound. EXTREMITIES: Normal range of motion, no clubbing or edema. Neurovascularly intact Right upper extremity has a strong palpable radial and ulnar pulse left upper extremity slightly cyanotic but warm weak radial pulse is felt NEUROLOGICAL: Alert and oriented x4.Normal gait and speech. No cranial nerve deficits SKIN: Left arm is slightly cyanotic Course Orders Ordered: ED Orders 03/22/22 10:21 US periph venous up extrem lt Stat XR chest 1V Stat EKG-12 Lead Stat 03/22/22 10:30 Complete Blood Count AUTO DIFF Stat Comprehensive Metabolic Panel Stat D Dimer Stat Lipase Stat Partial Thromboplastin Time Stat Prothrombin Time INR Stat Troponin & CK Cardiac Panel Stat 03/22/22 12:56 CT angio chest PE protocol Stat Discontinued Medications Apixaban (Apixaban 5 Mg Tablet) 10 mg PO NOW ONE Stop: 03/22/22 13:26 Last Admin: 03/22/22 13:37 Dose: 10 mg Documented By: SB Vital Signs Vital signs: Vital Signs - 8 hr 03/22/22 13:04 03/22/22 13:05 03/22/22 13:05 Pulse Rate 80 70 Respiratory Rate 40 H 25 H Blood Pressure 153/85 H Pulse Oximetry 92 03/22/22 13:30 03/22/22 13:30 Pulse Rate 71 Respiratory Rate 30 H Blood Pressure 139/82 Pulse Oximetry 97 MDM - Extremity (Nontraumatic) Lab Data Result diagrams: 03/22/22 10:30 03/22/22 10:30 Labs: Lab Results 03/22/22 03/22/22 03/22/22 Range/Units 10:30 10:30 10:30 WBC 6.3 (4.5-11.0) X10^3/uL RBC 4.28 (4.0-5.2) X10^6/uL Hgb 12.1 (12.0-16.0) g/dL Hct 35.4 L (36-46) % MCV 82.7 (80-100) fL MCH 28.3 (26-34) PG MCHC 34.2 (30-36) % RDW 14.9 H (11.6-14.8) % Plt Count 363 (150-400) X10^3/uL Neut % (Auto) 67.7 (50-75) % Lymph % (Auto) 22.6 L (25-40) % [place] % (Auto) 6.6 (3-14) % Eos % (Auto) 2.7 (2-4) % Baso % (Auto) 0.4 (0-2) % Neut # (Auto) 4300 (5167-3861) /uL Lymph # (Auto) 1400 (2279-6617) /uL [place] # (Auto) 400 (0-900) /uL Eos # (Auto) 200 (0-450) /uL Baso # (Auto) 0 (0-100) /uL PT 12.2 (10.1-12.7) SECONDS INR 1.1 (0.9-1.3) APTT 36 (26-36) SECONDS D-Dimer 775 H (<500) ng/ml Sodium 139 (137-145) mmol/L Potassium 3.9 (3.4-5.1) mmol/L Chloride 106 (98-107) mmol/L Carbon Dioxide 23 (22-32) mmol/L BUN 12 (7-17) mg/dL Creatinine 0.75 (0.52-1.04) mg/dL Estimated GFR > 60 (>60) mL/min BUN/Creatinine Ratio 16.0 (6-22) Glucose 92 (70-100) mg/dL Calcium 9.1 (8.4-10.2) mg/dL Total Bilirubin 0.4 (0.2-1.3) mg/dL AST 18 (14-36) IU/L ALT 22 (<35) IU/L Alkaline Phosphatase 63 (38-126) U/L Total Creatine Kinase 48 (30-135) U/L CK-MB (CK-2) TNP CK-MB (CK-2) Rel Index TNP Troponin I < 0.012 (0.01-0.034) ng/mL Total Protein 7.9 (6.3-8.2) g/dL Albumin 4.4 (3.5-5.0) g/dL Globulin 3.5 (1.7-4.1) g/dL Albumin/Globulin Ratio 1.3 (1.0-2.8) Lipase 117 (23-300) U/L Point of Care Testing Test Results Negative Imaging Data US - DVT: Radiologist's Impression: Ultrasound Report Signed Patient: Jenelle Valladares MR#: [id number] : 1980 Acct:[id number] Age/Sex: 41 / F Date of Service: 03/22/22 Loc: ED Accession Number: [id number] ?? Procedure: US periph venous up extrem lt Ordering Provider: Faith Levi D.O. PROCEDURE:? US PERIPH VENOUS UP EXTREM LT ? INDICATIONS:? SWELLING ? TECHNIQUE:? Real-time imaging, as well as color and pulse Doppler interrogation, was performed of the left upper extremity deep veins from the inferior neck to the antecubital fossa.? ? COMPARISON:? None. ? FINDINGS:? There is intraluminal filling defect within 1 of the branches of left brachial vein in proximal to distal upper arm with absence of flow. ? IMPRESSION:? Occlusive venous thrombosis involving 1 of the left brachial vein branches.? No evidence of DVT is seen in rest of the visualized left upper extremity veins. ? ? Dictated by: Jean Marie Castaneda M.D. on 03/22/2022 at 11:55 ? ? Chest x-ray: Radiologist's Impression: XRay Report Signed Patient: Jenelle Valladares MR#: [id number] : 1980 Acct:[id number] Age/Sex: 41 / F Date of Service: 03/22/22 Loc: ED Accession Number: [id number] ?? Procedure: XR chest 1V Ordering Provider: Faith Levi D.O. PROCEDURE:? XR CHEST 1V ? INDICATIONS:? chest pain ? TECHNIQUE:? One view of the chest was acquired.? ? COMPARISON:? [facility], , XR CHEST 1V, 12/21/2021, 10:28. ? FINDINGS:? ? Surgical changes and devices:? Dual-chamber left-sided pacemaker/defibrillator present ? Lungs and pleura:? Lungs are clear.? No pleural effusions or pneumothorax.? ? Mediastinum:? Mediastinal contours appear normal.? Heart size is normal.? ? Bones and chest wall:? No suspicious bony lesions.? Overlying soft tissues appear unremarkable.? ? IMPRESSION:? No acute cardiopulmonary findings ? ? ? Approved by: Alex Holley M.D. on 03/22/2022 at 10:38? CT scan - chest: Radiologist's Impression: CT Scan Report Signed Patient: Jenelle Valladares MR#: [id number] : 1980 Acct:[id number] Age/Sex: 41 / F Date of Service: 03/22/22 Loc: ED Accession Number: [id number] ?? Procedure: CT angio chest PE protocol Ordering Provider: Faith Levi D.O. PROCEDURE:? CT ANGIO CHEST PE PROTOCOL ? INDICATIONS:? lue dvt ? TECHNIQUE:? After the administration of intravenous contrast, 2 mm thick sections acquired from the pulmonary apices to the posterior costophrenic angles.? 3-dimensional maximum intensity projection (MIP) coronal and sagittal reformats were then acquired through the thorax.? For radiation dose reduction, the following was used:? automated exposure control, adjustment of mA and/or kV according to patient size.? ? COMPARISON:? [facility], CT, CT ANGIO CHEST ABDOMEN PELVIS, 12/21/2021, 9:39. ? FINDINGS:? Image quality:? Excellent.? ? Pulmonary arteries:? Pulmonary arteries are normal in size, and demonstrate no intraluminal filling defects to suggest central pulmonary embolism.? ? Lungs and pleura:? Lungs are clear.? No pleural effusions or pneumothorax.? Central and peripheral airways are patent.? ? Mediastinum:? Heart size is normal, without pericardial effusion.? No mediastinal or hilar adenopathy.? Thoracic aorta is normal in caliber and enhancement.? Esophagus is normal in caliber, without hiatal hernia.? ? Bones and chest wall:? No suspicious bony lesions.? Ribs and thoracic spine appear intact throughout.? Thyroid gland is unremarkable.? No axillary or supraclavicular adenopathy.? ? Abdomen:? Visualized upper abdominal solid organs appear normal in the early arterial phase of enhancement.? ? IMPRESSION:? ? 1. No evidence acute pulmonary emboli. ? 2. No evidence acute pulmonary process.? ? ? Dictated by: Dru Riley M.D. on 03/22/2022 at 13:10 ? ? Approved by: Dru Riley M.D. on 03/22/2022 at 13:14 ? ECG Data Interpretation: Sinus rhythm rate 60 CO interval 202 QRS 84 QTC 448 improved from previous EKG she does have a T-wave inversion noted in lead 3 and pacemaker spikes noted MDM Narrative Medical decision making narrative: Patient 41-year-old female with recent history of CVA cardiac arrest now presenting with left arm pain and some cyanosis. She actually does have a palpable pulse in her hand is warm it is not cool. Do not think arterial occlusion at this time. Ultrasound does confirm DVT. She has not had really any procedure she does report that she had a blood draw from the arm a week ago. But she has not had a PICC line or an IV. CT is negative for pulmonary embolism. High suspicion for underlying clotting disorder. She says she was worked up and negative however encourage her for further workup seeing his own last 4 months she now an unprovoked DVT. She is not tachycardic or hypotensive. Blood work is otherwise reassuring. She is given her 1st dose of Eliquis we discussed risks of anticoagulation. There is no contraindication for anticoagulation for her. We discussed differences between warfarin and Eliquis and reversal. She is instructed to stop taking Plavix while taking Eliquis. Differential diagnosis, DVT, arterial occlusion, cancer Discharge Plan Departure Patient Disposition: Home Clinical Impression: Deep venous thrombosis of upper extremity Instructions: Deep Vein Thrombosis Activity Restrictions/Additional Instructions: *You have been diagnosed with left upper extremity blood *What to do: I am so happy to be able to give you discharge instructions today. I am sorry to see you again. I do strongly recommend that you have further testing for clotting disorder. *Continue to take medications as directed --> [facility] Eliquis 10 mg twice a day for 7 days then 5 mg twice daily until further instructions *Follow up with your primary care provider in 2-3 days or call [phone] *Return to ER if you should have increasing chest pain shortness of breath arm pain blueness [or] any new, worsening or concerning symptoms Prescriptions: New Eliquis 5 mg tablet 5 mg PO BID Qty: 90 0RF Rx Instructions: 10 mg twice a day for 7 days then 5 mg twice a day No Action atorvastatin [Lipitor] 20 mg Tablet 80 mg PO BEDTIME Qty: 30 0RF aspirin 81 mg Tablet,Delayed Release (Dr/Ec) 81 mg PO DAILY Qty: 30 0RF Referrals: Kourtney Conteh ARNP [Primary Care Provider] - Visit Report Forms: Patient Portal/API
[2022-03-22 10:58] LABS: Add Manual Diff / Slide Review NO; Basophils Absolute Auto 0 /uL (0-100); Basophils Percent Auto 0.4 % (0-2); Eosinophils Absolute Auto 200 /uL (0-450); Eosinophils Percent Auto 2.7 % (2-4); Hematocrit 35.4 % (36-46); Hemoglobin 12.1 g/dL (12.0-16.0); Lymphocytes Absolute Auto 1400 /uL (1100-4500); Lymphocytes Percent Auto 22.6 % (25-40); Mean Corpuscular HGB Conc 34.2 % (30-36); Mean Corpuscular Hemoglobin 28.3 PG (26-34); Mean Corpuscular Volume 82.7 fL (80-100); Monocytes Absolute Auto 400 /uL (0-900); Monocytes Percent Auto 6.6 % (3-14); Neutrophils Absolute Auto 4300 /uL (1500-7000); Neutrophils Percent Auto 67.7 % (50-75); Platelet Count 363 X10^3/uL (150-400); Red Blood Cell Count 4.28 X10^6/uL (4.0-5.2); Red Cell Distribution Width 14.9 % (11.6-14.8); White Blood Cell Count 6.3 X10^3/uL (4.5-11.0)
[2022-03-22 11:11] LABS: INR 1.1 (0.9-1.3); Prothrombin Time 12.2 SECONDS (10.1-12.7)
[2022-03-22 11:13] LABS: PTT Partial Thromboplastin Tim 36 SECONDS (26-36)
[2022-03-22 11:15] LABS: Alanine Aminotransferase 22 IU/L (<35); Albumin 4.4 g/dL (3.5-5.0); Albumin Globulin Ratio 1.3 (1.0-2.8); Alkaline Phosphatase 63 U/L (38-126); Aspartate Aminotransferase 18 IU/L (14-36); Bilirubin Total 0.4 mg/dL (0.2-1.3); Blood Urea Nitrogen 12 mg/dL (7-17); Calcium 9.1 mg/dL (8.4-10.2); Carbon Dioxide 23 mmol/L (22-32); Chloride 106 mmol/L (98-107); Creatine Kinase 48 U/L (30-135); Estimated Glomerular Filt Rate > 60 mL/min (>60); Globulin 3.5 g/dL (1.7-4.1); Glucose 92 mg/dL (70-100); HEMOLYSIS < 15 (0-50); Lipase 117 U/L (23-300); Potassium 3.9 mmol/L (3.4-5.1); Sodium 139 mmol/L (137-145); Total Protein 7.9 g/dL (6.3-8.2)
--- NOTE | 2022-03-22 11:15 | PC.NURSE ---
MD at bedside - at bedside
[2022-03-22 11:27] LABS: Troponin I < 0.012 ng/mL (0.01-0.034)
[2022-03-22 11:33] LABS: D Dimer 775 ng/ml (<500)
--- NOTE | 2022-03-22 12:00 | PC.NURSE ---
Resting quietly in NAD - no needs voiced - PWD with respirations equal and unlabored bilaterally - family at bedside
--- NOTE | 2022-03-22 12:55 | PC.NURSE ---
To CT via W/C with tech
--- NOTE | 2022-03-22 12:56 | DI.CT.S_ITS ---
PROCEDURE: CT ANGIO CHEST PE PROTOCOL INDICATIONS: lue dvt TECHNIQUE: After the administration of intravenous contrast, 2 mm thick sections acquired from the pulmonary apices to the posterior costophrenic angles. 3-dimensional maximum intensity projection (MIP) coronal and sagittal reformats were then acquired through the thorax. For radiation dose reduction, the following was used: automated exposure control, adjustment of mA and/or kV according to patient size. COMPARISON: [facility], CT, CT ANGIO CHEST ABDOMEN PELVIS, 12/21/2021, 9:39. FINDINGS: Image quality: Excellent. Pulmonary arteries: Pulmonary arteries are normal in size, and demonstrate no intraluminal filling defects to suggest central pulmonary embolism. Lungs and pleura: Lungs are clear. No pleural effusions or pneumothorax. Central and peripheral airways are patent. Mediastinum: Heart size is normal, without pericardial effusion. No mediastinal or hilar adenopathy. Thoracic aorta is normal in caliber and enhancement. Esophagus is normal in caliber, without hiatal hernia. Bones and chest wall: No suspicious bony lesions. Ribs and thoracic spine appear intact throughout. Thyroid gland is unremarkable. No axillary or supraclavicular adenopathy. Abdomen: Visualized upper abdominal solid organs appear normal in the early arterial phase of enhancement. IMPRESSION: 1. No evidence acute pulmonary emboli. 2. No evidence acute pulmonary process. Dictated by: Dru Riley M.D. on 03/22/2022 at 13:10 Approved by: Dru Riley M.D. on 03/22/2022 at 13:14
[2022-03-22 13:04] VITALS: PULSE 80; RESP 40
--- NOTE | 2022-03-22 13:04 | PC.NURSE ---
returns to the room via w/c with tech
[2022-03-22 13:05] VITALS: BP 153/85; PULSE 70; RESP 25; O2SAT 92
[2022-03-22 13:30] VITALS: BP 139/82; PULSE 71; RESP 30; O2SAT 97
[2022-03-22] MEDS: APIXABAN 5 MG TABLET 10 MG PO (13:37)
--- NOTE | 2022-03-22 13:40 | PC.NURSE ---
MD at bedside - family present
== END 2022-03-22 14:01 | disposition home or self-care (01) ==
PROVIDERS: Emergency Provider Emergency Medicine; PCP Nurse Practitioner Family
DX: I82.622 Acute embolism and thrombosis of deep veins of left upper extremity (principal); Z86.74 Personal history of sudden cardiac arrest; Z95.0 Presence of cardiac pacemaker
CPT/HCPCS: 36415; 71045; 71275; 80053; 81025; 82550; 83690; 84484; 85025; 85379; 85610; 85730; 93005; 93971; 99284